=== PATIENT | male | born 1975 | race Caucasian/White ===

== ENCOUNTER → 2016-02-22 | Outpatient (CLI) | payer OTHER ==
[~2016-02-22] MED LIST: ASPI81TA28 PO; BSP/5 PO; DIPH1TAB PO; HYDR-5688 PO; LISI-725 PO; METO50TA16 PO; OMEP40CA PO; OMEP40CA41 PO
[2016-02-22 12:51] LABS: ALT/SGPT 38 U/L (12-78); AST/SGOT 15 U/L (15-37); BLOOD UREA NITROGEN 17 mg/dl (7-18); BUN/CREATININE RATIO 13.9 (10-20); CALCIUM 9.1 mg/dl (8.5-10.1); CARBON DIOXIDE 31 mmol/L (21-32); CHLORIDE 104 mmol/L (98-107); GLUCOSE 97 mg/dl (70-99); POTASSIUM 4.1 mmol/L (3.5-5.1); SODIUM 141 mmol/L (136-145)
[2016-02-22 12:54] LABS: ALB/GLOB RATIO 1.3 (0.9-2); ALKALINE PHOSPHATASE 67 U/L (45-117); CHOLESTEROL 149 mg/dl (0-200); CHOLESTEROL/HDL RATIO 3.9; HDL CHOLESTEROL 38 mg/dl; LDL CHOLESTEROL CALCULATED 76 mg/dl; TRIGLYCERIDES 176 mg/dl (0-150); VERY LOW DENSITY LIPOPROT CALC 35 mg/dl
== END | disposition home or self-care (01) ==
LOC: C.LABPVFM 08:48
PROVIDERS: ATTEND Nurse Practitioner Family
DX: I10 Essential (primary) hypertension (principal)

== ENCOUNTER 2016-03-09 18:28 | Emergency (ER) | payer OTHER ==
[~2016-03-09] VITALS: Ht 177.8 cm; Wt 91.0 kg
[~2016-03-09 18:28] MED LIST changes: -ASPI81TA28 PO; -BSP/5 PO; -DIPH1TAB PO; -HYDR-5688 PO; -LISI-725 PO; -METO50TA16 PO; -OMEP40CA41 PO
[2016-03-09 18:33] VITALS: TEMP 36.3; Ht 177.8 cm; Wt 91.0 kg
[2016-03-09] MEDS ORDERED: LISI-725 PO (19:03)
[2016-03-09] MEDS ORDERED: BSP/5 PO (19:03)
[2016-03-09] MEDS ORDERED: METO50TA16 PO (19:03)
[2016-03-09] MEDS ORDERED: OMEP40CA41 PO (19:03)
[2016-03-09] MEDS ORDERED: ASPI81TA28 PO (19:04)
[2016-03-09] MEDS ORDERED: DIPH1TAB PO (19:04)
[2016-03-09] MEDS ORDERED: SODIUM CHLORIDE 0.9% 1000ML 1,000 ML IV STA (19:42)
[2016-03-09] MEDS ORDERED: ONDANSETRON INJ 2 MG/ML 2 ML VIAL IV STA (19:42)
[2016-03-09] MEDS ORDERED: MoRPHine SULFATE 4 MG/ML 1 ML CARP\\VIAL IV PRN (19:45)
[2016-03-09 19:51] VITALS: O2SAT 97
[2016-03-09 19:51] LABS: BASO % 0.2 %; BASO ABS # 0.01 K/uL (0-0.2); COMPLETE YES; EOS % 2.2 %; HEMATOCRIT 42.7 % (42-52); IG% 0.2 %; LYMPH % 14.9 %; LYMPH ABS # 0.76 K/uL (1.2-3.4); MEAN CELL VOLUME 86.6 fL (80-100); MEAN CORPUSCULAR HEMOGLOBIN 32.7 pg (25-34); MEAN CORPUSCULAR HGB CONC 37.7 g/dl (32-36); MEAN PLATELET VOLUME 9.9 fL (7.4-10.4); MONO % 6.9 %; NEUT % 75.6 %; PLATELET COUNT 174 K/uL (130-400); RED BLOOD COUNT 4.93 M/uL (4.7-6.1); WHITE BLOOD COUNT 5.09 K/uL (4.8-10.8)
--- NOTE | 2016-03-09 20:02 | DIAGNOSTIC IMAGING REPORT ---
CHEST ONE VIEW PORTABLE HISTORY: Atypical CHEST PAIN COMPARISON: Chest 08/18/2015. FINDINGS: The lungs are clear. Cardiac silhouette is normal in size. No pleural effusions. No pneumothorax. IMPRESSION: No acute process. Electronically signed by: Raheem Whalen M.D. 03/09/2016 8:01 PM Dictated Date/Time: 03/09/2016 8:00 PM
[2016-03-09 20:05] LABS: ALT/SGPT 31 U/L (12-78); BLOOD UREA NITROGEN 19 mg/dl (7-18); BUN/CREATININE RATIO 13.5 (10-20); CALCIUM 7.8 mg/dl (8.5-10.1); CARBON DIOXIDE 23 mmol/L (21-32); CHLORIDE 104 mmol/L (98-107); GLUCOSE 105 mg/dl (70-99); POTASSIUM 3.4 mmol/L (3.5-5.1); SODIUM 139 mmol/L (136-145)
[2016-03-09 20:09] LABS: ALKALINE PHOSPHATASE 81 U/L (45-117); AST/SGOT 20 U/L (15-37)
[2016-03-09] MEDS ORDERED: OPTIRAY 320 IV PRN (20:30)
--- NOTE | 2016-03-09 20:50 | DIAGNOSTIC IMAGING REPORT ---
HEAD CT NONCONTRAST CT DOSE: HISTORY: severe headache, blurry vision TECHNIQUE: Multiaxial CT images of the head were performed without the use of intravenous contrast. Automated exposure control was utilized for this study. Comparison: None. Findings: The paranasal sinuses and mastoid air cells are clear. The calvarium and skull base are intact. The ventricles and sulci are within normal limits. There is no mass, hematoma, midline shift, or acute infarct. Impression: No acute intracranial abnormality. Electronically signed by: Raheem Whalen M.D. 03/09/2016 8:48 PM Dictated Date/Time: 03/09/2016 8:44 PM
--- NOTE | 2016-03-09 20:57 | DIAGNOSTIC IMAGING REPORT ---
CHEST CTA for PULMONARY ARTERIES CT DOSE: 1396.69 mGy.cm HISTORY: Atypical chest pain. Short of breath. TECHNIQUE: Multiaxial CT images of the chest were performed following the intravenous administration of contrast to evaluate the pulmonary arteries. Maximal intensity projection images were also obtained. COMPARISON STUDY: Chest 03/09/2016. FINDINGS: Normal caliber thoracic aorta with no evidence for dissection. Incidental note is made of an aberrant right subclavian artery. The heart is normal in size. No pleural or pericardial effusions. No filling defects within the pulmonary arteries to suggest pulmonary embolus. The visualized liver is unremarkable. There may be mild splenomegaly which is partially visualized on this study. The adrenal glands are unremarkable. No mediastinal lymphadenopathy. Single prominent right hilar lymph node measuring 8 mm. No left hilar lymphadenopathy. No suspicious lytic or blastic osseous lesions. No pneumothorax. The central airways are patent. Suspect mild emphysema. No focal lung consolidations. IMPRESSION: No evidence for pulmonary embolus. Additional findings as described above Electronically signed by: Raheem Whalen M.D. 03/09/2016 8:56 PM Dictated Date/Time: 03/09/2016 8:48 PM
[2016-03-09 21:30] VITALS: BP 104/69; PULSE 62; O2SAT 96
[2016-03-09 21:56] LABS: URINE APPEARANCE CLEAR (CLEAR); URINE COLOR DK YELLOW; URINE EPITHELIAL CELL AUTO >30 /lpf (0-5); URINE NITRITE NEG (NEG); URINE PH 5.5 (4.5-7.5); URINE SPECIFIC GRAVITY 1.039 (1.000-1.030); UROBILINOGEN NEG (NEG)
[2016-03-09 22:07] LABS: MANUAL MICROSCOPIC REQUIRED? NO; REVIEW REQ? YES
[2016-03-09 22:08] LABS: URINE BILIRUBIN NEG (NEG)
[2016-03-09 22:28] LABS: URINE MUCUS PRESENT (NONE PRSENT)
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
== END 2016-03-09 21:35 | disposition home or self-care (01) ==
LOC: EDBD 18:28 → C.EDB 18:29
DX: R55 Syncope and collapse (principal); R07.9 Chest pain, unspecified; R51 Headache; H53.8 Other visual disturbances; I45.10 Unspecified right bundle-branch block; I10 Essential (primary) hypertension; K21.9 Gastro-esophageal reflux disease without esophagitis; F41.9 Anxiety disorder, unspecified; Z79.82 Long term (current) use of aspirin; F17.200 Nicotine dependence, unspecified, uncomplicated

== ENCOUNTER 2016-05-24 17:41 | Emergency (ER) | payer OTHER ==
[~2016-05-24] VITALS: Ht 177.8 cm; Wt 95.4 kg
[~2016-05-24 17:41] MED LIST changes: +ASPI81TA28 PO; +BSP/5 PO; +DIPH1TAB87 PO; +LISI-725 PO; +METO50TA16 PO; -OMEP40CA PO; +OMEP40CA41 PO
[2016-05-24 17:52] VITALS: TEMP 36.6; Ht 177.8 cm; Wt 95.4 kg
[2016-05-24] MEDS ORDERED: HYDROCODONE/ACETAMOPHEN 5/325MG TAB PO STA (18:13)
--- NOTE | 2016-05-24 18:45 | DIAGNOSTIC IMAGING REPORT ---
LEFT RIBS UNILATERAL WITH PA CHEST CLINICAL HISTORY: left rib pain pain COMPARISON STUDY: None FINDINGS: Negative left ribs. Negative PA chest. IMPRESSION: Negative study Electronically signed by: Shiv Jo M.D. 05/24/2016 6:43 PM Dictated Date/Time: 05/24/2016 6:40 PM
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
[2016-05-24] MEDS ORDERED: HYDR-5688 PO (18:51)
[2016-05-24 19:12] VITALS: BP 142/84; PULSE 80; O2SAT 97
== END 2016-05-24 19:13 | disposition home or self-care (01) ==
LOC: C.EDB 17:42 → C.EDD 19:13
DX: M94.0 Chondrocostal junction syndrome [Tietze] (principal); I10 Essential (primary) hypertension; Z87.19 Personal history of other diseases of the digestive system; Z98.890 Other specified postprocedural states; Z79.899 Other long term (current) drug therapy; Z88.8 Allergy status to other drugs, medicaments and biological substances

== ENCOUNTER → 2016-10-06 | Outpatient (CLI) | payer OTHER ==
[~2016-10-06] MED LIST changes: -BSP/5 PO; -DIPH1TAB87 PO; +HYDR-5688 PO; -LISI-725 PO; -METO50TA16 PO
[2016-10-06 12:58] LABS: BLOOD UREA NITROGEN 15 mg/dl (7-18); BUN/CREATININE RATIO 10.5 (10-20); CALCIUM 8.5 mg/dl (8.5-10.1); CARBON DIOXIDE 29 mmol/L (21-32); CHLORIDE 106 mmol/L (98-107); GLUCOSE 99 mg/dl (70-99); SODIUM 139 mmol/L (136-145)
== END | disposition home or self-care (01) ==
LOC: C.LABPVFM 07:50
PROVIDERS: ATTEND Nurse Practitioner Family
DX: F41.9 Anxiety disorder, unspecified (principal)

== ENCOUNTER 2017-03-27 20:22 | Emergency (ER) | payer OTHER ==
[~2017-03-27] VITALS: Ht 177.8 cm; Wt 101.6 kg
[~2017-03-27 20:22] MED LIST changes: -HYDR-5688 PO
[2017-03-27 20:30] VITALS: Ht 177.8 cm; Wt 101.6 kg
[2017-03-27] MEDS ORDERED: ALBUT/IPRATROP 3MG/0.5MG NEB 3 ML VIAL INH STA (20:58)
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
[2017-03-27] MEDS ORDERED: OMEP40CA41 PO (21:18)
[2017-03-27] MEDS ORDERED: TRAZ50TA35 PO (21:18)
[2017-03-27] MEDS ORDERED: QUET1TAB34 PO (21:18)
[2017-03-27] MEDS ORDERED: LISI-787 PO (21:18)
[2017-03-27] MEDS ORDERED: METO50TA16 PO (21:18)
[2017-03-27] MEDS ORDERED: MIRT15TA3 PO (21:18)
[2017-03-27] MEDS ORDERED: GABA-113 PO (21:18)
[2017-03-27 21:41] LABS: BASO % 0.4 %; BASO ABS # 0.02 K/uL (0-0.2); EOS % 7.8 %; EOS ABS # 0.37 K/uL (0-0.5); HEMATOCRIT 42.7 % (42-52); HEMOGLOBIN 15.3 g/dL (14.0-18.0); LYMPH % 37.1 %; LYMPH ABS # 1.77 K/uL (1.2-3.4); MEAN CELL VOLUME 90.5 fL (80-100); MEAN CORPUSCULAR HEMOGLOBIN 32.4 pg (25-34); MEAN CORPUSCULAR HGB CONC 35.8 g/dl (32-36); MEAN PLATELET VOLUME 9.5 fL (7.4-10.4); MONO % 7.3 %; MONO ABS # 0.35 K/uL (0.11-0.59); NEUT % 47.4 %; NEUT ABS # 2.26 K/uL (1.4-6.5); PLATELET COUNT 162 K/uL (130-400); RED CELL DISTRIBUTION WIDTH CV 14.1 % (11.5-14.5); RED CELL DISTRIBUTION WIDTH SD 46.6 fL (36.4-46.3); WHITE BLOOD COUNT 4.77 K/uL (4.8-10.8)
[2017-03-27 21:42] VITALS: TEMP 36.6
--- NOTE | 2017-03-27 21:44 | DIAGNOSTIC IMAGING REPORT ---
SINGLE VIEW CHEST CLINICAL HISTORY: Rhonchi on physical examination. Cough. FINDINGS: An AP, portable, upright chest radiograph is compared to chest x-ray and chest CT dated 03/09/2016. The examination is degraded by portable technique and patient rotation. The cardiomediastinal silhouette is unremarkable. The lungs and pleural spaces are clear. No pneumothorax is seen. The bony thorax is grossly intact. IMPRESSION: No acute cardiopulmonary abnormality. Electronically signed by: Reji Mathias M.D. 03/27/2017 9:42 PM Dictated Date/Time: 03/27/2017 9:42 PM
[2017-03-27 22:01] LABS: ALBUMIN 4.1 gm/dl (3.4-5.0); CALCIUM 8.4 mg/dl (8.5-10.1); CREATININE 1.44 mg/dl (0.60-1.40); POTASSIUM 3.3 mmol/L (3.5-5.1)
[2017-03-27 22:12] LABS: TOTAL PROTEIN 7.7 gm/dl (6.4-8.2)
[2017-03-28 00:48] VITALS: BP 127/81; PULSE 76; O2SAT 98
== END 2017-03-28 00:49 | disposition home or self-care (01) ==
LOC: EDBD 20:22 → C.EDA 20:24
DX: R45.6 Violent behavior (principal); F39 Unspecified mood [affective] disorder; R06.2 Wheezing; F17.200 Nicotine dependence, unspecified, uncomplicated; I10 Essential (primary) hypertension; Z72.89 Other problems related to lifestyle; Z88.6 Allergy status to analgesic agent; Z82.49 Family history of ischemic heart disease and other diseases of the circulatory system; Z84.1 Family history of disorders of kidney and ureter

== ENCOUNTER 2017-05-09 12:21 | Emergency (ER) | payer OTHER ==
[~2017-05-09] VITALS: Ht 177.8 cm; Wt 96.9 kg
[~2017-05-09 12:21] MED LIST changes: -ASPI81TA28 PO; +LISI-787 PO; +METO50TA16 PO; +MIRT15TA3 PO; +QUET1TAB34 PO; +TRAZ50TA35 PO
[2017-05-09 12:24] VITALS: TEMP 36.5; Ht 177.8 cm; Wt 96.9 kg
[2017-05-09] MEDS ORDERED: SODIUM CHLORIDE 0.9% 1000ML 1,000 ML IV STA (12:54)
[2017-05-09] MEDS ORDERED: ALBUTEROL 0.083% NEBU SOLN 3 ML VIAL INH STA (12:55)
[2017-05-09] MEDS ORDERED: BENZONATATE 100MG CAP PO ONE (13:00)
--- NOTE | 2017-05-09 13:17 | DIAGNOSTIC IMAGING REPORT ---
CHEST ONE VIEW PORTABLE CLINICAL HISTORY: 42 years-old Male presenting with cough, headache, lower back pain, loss of breath. TECHNIQUE: Portable upright AP view of the chest was obtained. COMPARISON: 03/27/2017. FINDINGS: Cardiomediastinal silhouette normal. Lungs and pleural spaces clear. Osseous structures normal. Upper abdomen normal. IMPRESSION: 1. No acute cardiopulmonary disease. Electronically signed by: Ruben Lund M.D. 05/09/2017 1:15 PM Dictated Date/Time: 05/09/2017 1:14 PM
[2017-05-09 13:23] LABS: BASO % 0.3 %; BASO ABS # 0.01 K/uL (0-0.2); EOS ABS # 0.04 K/uL (0-0.5); HEMOGLOBIN 16.9 g/dL (14.0-18.0); IG# 0.01 K/uL (0.00-0.02); LYMPH % 4.9 %; LYMPH ABS # 0.19 K/uL (1.2-3.4); MEAN CELL VOLUME 88.6 fL (80-100); MEAN CORPUSCULAR HEMOGLOBIN 33.3 pg (25-34); MEAN CORPUSCULAR HGB CONC 37.6 g/dl (32-36); MEAN PLATELET VOLUME 9.9 fL (7.4-10.4); MONO % 13.6 %; MONO ABS # 0.53 K/uL (0.11-0.59); NEUT % 79.9 %; NEUT ABS # 3.13 K/uL (1.4-6.5); PLATELET COUNT 162 K/uL (130-400); RED CELL DISTRIBUTION WIDTH CV 12.8 % (11.5-14.5); RED CELL DISTRIBUTION WIDTH SD 41.1 fL (36.4-46.3); WHITE BLOOD COUNT 3.91 K/uL (4.8-10.8)
[2017-05-09 13:36] LABS: CALCIUM 9.5 mg/dl (8.5-10.1); CREATININE 1.57 mg/dl (0.60-1.40); POTASSIUM 3.7 mmol/L (3.5-5.1)
[2017-05-09 13:58] LABS: INFLUENZA B ANTIGEN Neg for Influ B (NEG)
[2017-05-09 14:00] VITALS: BP 138/83; PULSE 94; O2SAT 94
[2017-05-09] MEDS ORDERED: ALBUTEROL HFA 8 GM INHALER INH ONE (14:15)
--- NOTE | 2017-05-09 19:15 | EMERGENCY ROOM VISIT NOTE ---
History Report prepared by Junioribsavanah: Zhou Rodriguez Under the Supervision of: Dr. Real Ott D.O. First contact with patient: 12:47 Chief Complaint: RESPIRATORY PROBLEMS Stated Complaint: HEADACHE, LOSS OF BREATH, LOWER BACK PAIN Nursing Triage Summary: Shortness of breath. Difficulty with exertion. Describes chest pain with hurting to breath and hurting to cough. History of Present Illness The patient is a 42 year old male who presents to the Emergency Room with complaints of constant shortness of breath beginning yesterday. He states that he woke up with a cough yesterday. His cough produces a greenish sputum. The patient states that he then developed body aches, fevers (101 degrees), runny nose and sore throat. He also complains of lower back pain and headache with coughing. His back pain is worsened with movement. The patient's breathing is worsened with coughing. Pt denies ear pain, change in vision, chest pain, abdominal pain, nausea, vomiting, diarrhea, pain with urination, and melena. He denies any known sick contacts. He is a smoker. The patient has a history of hypertension. Patient denies swelling of calves, recent trips, history of immobilization or recent surgery, prior history of DVT, hemoptysis, history of malignancy, history of smoking, or control/estrogen use. Patient denies diabetes, hyperlipidemia, CAD, history of sudden at a young age. Source of History: patient Onset: Yesterday Quality: other (shortness of breath) Timing: constant Modifying Factors (Worsening): other (coughing) Associated Symptoms: + fevers (101 degrees), + headache (with coughing), + sorethroat, + cough, + back pain (low with coughing), No chest pain, No nausea, No vomiting, No abdominal pain, No melena, No diarrhea, No urinary symptoms Note: Positive: body aches and runny nose. Negative: ear pain, visual changes. Review of Systems See HPI for pertinent positives & negatives. A total of 10 systems reviewed and were otherwise negative. Past Medical & Surgical Medical Problems: (1) HTN (hypertension) Family History Hypertension Kidney disease Social History Smoking Status: Current Some Day Smoker Alcohol Use: none Housing Status: lives with family Occupation Status: unemployed Current/Historical Medications Scheduled Lisinopril/Hctz (Zestoretic 20MG/12.5MG), 1 TAB PO DAILY Metoprolol Tartrate (Lopressor) (Lopressor), 50 MG PO BID Mirtazapine (Remeron), 15 MG PO HS Omeprazole (Prilosec), 40 MG PO DAILY Quetiapine Fumarate (Seroquel), 100 MG PO BID Allergies Coded Allergies: Fentanyl (Verified Allergy, Severe, resp diff, 05/09/17) Naproxen (Unverified Allergy, Unknown, UPSET STOMACH, 05/09/17) Physical Exam Vital Signs Date Time Temp Pulse Resp B/P (MAP) Pulse Ox O2 Delivery O2 Flow Rate FiO2 05/09/17 14:00 94 20 138/83 94 Room Air 05/09/17 12:27 94 Room Air 05/09/17 12:24 36.5 112 20 144/89 96 Room Air Physical Exam GENERAL: Sitting up in bed, alert, well appearing, well nourished, no distress, non-toxic. Dry, non-productive cough. EYE EXAM: normal conjunctiva. EARS: TMs clear bilaterally. OROPHARYNX: no exudate, no erythema, lips, buccal mucosa, and tongue normal and mucous membranes are moist NECK: supple, no nuchal rigidity, no adenopathy, non-tender LUNGS: Diffuse wheezing bilaterally. HEART: no murmurs, S1 normal and S2 normal ABDOMEN: abdomen soft, non-tender, normo-active bowel sounds, no masses, no rebound or guarding. BACK: Back is symmetrical on inspection and there is no deformity. Lower lumbar paraspinal region with acute tenderness, worsened with bending/twisting/turning and palpation. SKIN: no rashes and no bruising UPPER EXTREMITIES: upper extremities are grossly normal. LOWER EXTREMITIES: No pitting edema. NEURO EXAM: Normal sensorium, cranial nerves II-XII grossly intact, normal speech, no gross weakness of arms, no gross weakness of legs. Medical Decision & Procedures ER Provider Diagnostic Interpretation: Radiology results as stated below per my review and the radiologist's interpretation: CHEST ONE VIEW PORTABLE FINDINGS: Cardiomediastinal silhouette normal. Lungs and pleural spaces clear. Osseous structures normal. Upper abdomen normal. IMPRESSION: 1. No acute cardiopulmonary disease. Electronically signed by: Ruben Lund M.D. 05/09/2017 1:15 PM Laboratory Results 05/09/17 13:05 Red Blood Count 5.08, Mean Corpuscular Volume 88.6, Mean Corpuscular Hemoglobin 33.3, Mean Corpuscular Hemoglobin Concent 37.6, Mean Platelet Volume 9.9, Neutrophils (%) (Auto) 79.9, Lymphocytes (%) (Auto) 4.9, Monocytes (%) (Auto) 13.6, Eosinophils (%) (Auto) 1.0, Basophils (%) (Auto) 0.3, Neutrophils # (Auto ) 3.13, Lymphocytes # (Auto) 0.19, Monocytes # (Auto) 0.53, Eosinophils # (Auto ) 0.04, Basophils # (Auto) 0.01 05/09/17 13:05 Test 05/09/17 13:05 05/09/17 13:25 White Blood Count 3.91 K/uL (4.8-10.8) Red Blood Count 5.08 M/uL (4.7-6.1) Hemoglobin 16.9 g/dL (14.0-18.0) Hematocrit 45.0 % (42-52) Mean Corpuscular Volume 88.6 fL (80-100) Mean Corpuscular Hemoglobin 33.3 pg (25-34) Mean Corpuscular Hemoglobin Concent 37.6 g/dl (32-36) Platelet Count 162 K/uL (130-400) Mean Platelet Volume 9.9 fL (7.4-10.4) Neutrophils (%) (Auto) 79.9 % Lymphocytes (%) (Auto) 4.9 % Monocytes (%) (Auto) 13.6 % Eosinophils (%) (Auto) 1.0 % Basophils (%) (Auto) 0.3 % Neutrophils # (Auto) 3.13 K/uL (1.4-6.5) Lymphocytes # (Auto) 0.19 K/uL (1.2-3.4) Monocytes # (Auto) 0.53 K/uL (0.11-0.59) Eosinophils # (Auto) 0.04 K/uL (0-0.5) Basophils # (Auto) 0.01 K/uL (0-0.2) RDW Standard Deviation 41.1 fL (36.4-46.3) RDW Coefficient of Variation 12.8 % (11.5-14.5) Immature Granulocyte % (Auto) 0.3 % Immature Granulocyte # (Auto) 0.01 K/uL (0.00-0.02) Anion Gap 8.0 mmol/L (3-11) Est Creatinine Clear Calc Drug Dose 71.6 ml/min Estimated GFR () 62.1 Estimated GFR (Non- 53.6 BUN/Creatinine Ratio 8.6 (10-20) Calcium Level 9.5 mg/dl (8.5-10.1) Influenza Type A Antigen Neg for Influ A (NEG) Influenza Type B Antigen Neg for Influ B (NEG) Laboratory results per my review. Medications Administered Medications (Trade) Dose Ordered Sig/Gale Route Start Time Stop Time Status Last Admin Dose Admin Sodium Chloride 1,000 ml @ 999 mls/hr Q1H1M STAT IV 05/09/17 12:54 05/09/17 13:54 DC 05/09/17 13:19 999 MLS/HR Benzonatate (Tessalon Perles Cap) 100 mg NOW ONCE PO 05/09/17 13:00 05/09/17 13:01 DC 05/09/17 13:19 100 MG Albuterol Sulfate (Ventolin 0.083% 2.5MG/3ML Neb) 2.5 mg NOW STAT INH 05/09/17 12:55 05/09/17 12:56 DC 05/09/17 13:19 2.5 MG Albuterol (Ventolin Hfa Inhaler) 2 puffs NOW ONCE INH 05/09/17 14:15 05/09/17 14:17 DC 05/09/17 14:14 2 PUFFS ECG Per My Interpretation Indication: SOB/dyspnea Rate (beats per minute): 96 Rhythm: sinus rhythm Findings: no ectopy, other (Normal axis. Intraventricular conduction delay. ) ED Course ED COURSE: Vital signs were reviewed and showed tachycardia and hypertension. The patients medical record was reviewed The above diagnostic studies were performed and reviewed. ED treatments and interventions as stated above. 1249: The patient was evaluated in room C3. A complete history and physical examination was performed. 1254: Ordered Sodium Chloride 1000 ml @ 999 mls/hr IV, Ventolin 0.083% 2.5 mg INH. 1300: Ordered Tessalon Perles Cap 100 mg PO. 1405: Upon reevaluation, the patient is resting comfortably. He feels much better and does not want anything else done. His heart rate is down to the 90' s. I discussed my findings with the patient and he understands and agrees with the treatment plan. Based on the patients age, coexisting illnesses, exam and lab findings the decision to treat as an outpatient was made. The patient remained stable while under my care. The patient appeared well at the time of discharge. 1415: Ordered Ventolin Hfa Inhaler 2 puffs INH. Medical Decision Differential diagnoses includes but is not limited to pneumonia, bronchitis, COPD/Asthma exacerbation, pneumothorax, pulmonary embolism, congestive heart failure, acute coronary syndrome. Patient is a 42-year-old male who presents the ER for shortness of breath associated with a green productive cough, runny nose and sore throat. He did have a temperature of 101 yesterday. He also admits to mild right lower back pain. This is worsened with twisting turning bending and reproducible on exam. I do favor this musculoskeletal. Labs show mild leukopenia at 3.9. BMP was unremarkable. Chest x-ray and EKG were unremarkable. Based on symptoms I do favor this is related to a viral URI/bronchitis. He did have wheezing bilaterally which resolved with a neb treatment. He did feel significant better. He declined additional treatment. He was discharged follow-up with PCP as an outpatient. He was given an inhaler as I favor he likely has reactive airway disease secondary to a viral URI. Discussed with Pt concerning signs and symptoms to watch out for. Pt was instructed to follow up with their PCP and discussed with the patient their option to return to the ED at anytime for persistent or worsening symptoms. The appropriate anticipatory guidance and out-patient management, including indications for return to the emergency department, were explained at length to the patient and understood. Medication Reconcilliation Current Medication List: was personally reviewed by me Blood Pressure Screening Patient's blood pressure: Elevated blood pressure Blood pressure disposition: Elevated BP felt to be situational Impression Primary Impression: Bronchitis Scribe Attestation The scribe's documentation has been prepared under my direction and personally reviewed by me in its entirety. I confirm that the note above accurately reflects all work, treatment, procedures, and medical decision making performed by me. Departure Information Dispostion Home / Self-Care Referrals No Doctor, Assigned (PCP) Forms HOME CARE DOCUMENTATION FORM, IMPORTANT VISIT INFORMATION, WORK / SCHOOL INSTRUCTIONS Patient Instructions Bronchitis Acute, My [facility] Additional Instructions Please follow up with your primary care doctor with in the next 24 hours. Any worsening of your symptoms, please return to the ED immediately. This includes any fevers greater than 100.4, worsening pain, chest pain, shortness breath, persistent nausea, vomiting, unable to eat or drink, or any other concerning signs or symptoms from your standpoint. Please use the inhaler as prescribed over the course of the next 3-5 days. This will help out with the wheezing and shortness of breath. With the inhaler he can use 2 puffs every 6 hours as needed for shortness of breath.
== END 2017-05-09 14:20 | disposition home or self-care (01) ==
LOC: C.EDB 12:22 → C.EDC 14:20
DX: J40 Bronchitis, not specified as acute or chronic (principal); I10 Essential (primary) hypertension; F17.200 Nicotine dependence, unspecified, uncomplicated; Z88.6 Allergy status to analgesic agent; Z82.49 Family history of ischemic heart disease and other diseases of the circulatory system; Z79.899 Other long term (current) drug therapy

== ENCOUNTER 2017-09-27 16:25 | Inpatient (IN) | payer OTHER ==
[~2017-09-27] VITALS: Ht 177.8 cm; Wt 90.9 kg
[~2017-09-27 16:25] MED LIST changes: -LISI-787 PO; -METO50TA16 PO; -OMEP40CA41 PO; -QUET1TAB34 PO; -TRAZ50TA35 PO
[2017-09-27] MEDS ORDERED: SODIUM CHLORIDE 0.9% 1000ML 1,000 ML IV STA (17:04)
[2017-09-27] MEDS ORDERED: ONDANSETRON INJ 2 MG/ML 2 ML VIAL IV STA (17:04)
[2017-09-27 17:28] LABS: BASO % 0.3 %; BASO ABS # 0.03 K/uL (0-0.2); EOS % 1.4 %; EOS ABS # 0.16 K/uL (0-0.5); HEMATOCRIT 53.6 % (42-52); HEMOGLOBIN 19.7 g/dL (14.0-18.0); IG# 0.03 K/uL (0.00-0.02); LYMPH % 9.8 %; LYMPH ABS # 1.11 K/uL (1.2-3.4); MEAN CELL VOLUME 89.3 fL (80-100); MEAN CORPUSCULAR HEMOGLOBIN 32.8 pg (25-34); MEAN CORPUSCULAR HGB CONC 36.8 g/dl (32-36); MEAN PLATELET VOLUME 10.2 fL (7.4-10.4); MONO % 4.7 %; MONO ABS # 0.53 K/uL (0.11-0.59); NEUT % 83.5 %; NEUT ABS # 9.52 K/uL (1.4-6.5); PLATELET COUNT 259 K/uL (130-400); RED CELL DISTRIBUTION WIDTH CV 13.2 % (11.5-14.5); RED CELL DISTRIBUTION WIDTH SD 42.5 fL (36.4-46.3); WHITE BLOOD COUNT 11.38 K/uL (4.8-10.8)
[2017-09-27] MEDS ORDERED: OPTIRAY 320 IV PRN (17:30)
--- NOTE | 2017-09-27 17:39 | DIAGNOSTIC IMAGING REPORT ---
CHEST ONE VIEW PORTABLE CLINICAL HISTORY: 42 years-old Male presenting with EVALUATE ALTERED MENTAL STATUS/WEAKNESS. TECHNIQUE: Portable upright AP view of the chest was obtained. COMPARISON: 05/09/2017. FINDINGS: Cardiomediastinal silhouette normal. No focal opacity. No large effusion or pneumothorax. Osseous structures normal. Upper abdomen normal. IMPRESSION: 1. No acute cardiopulmonary disease. Electronically signed by: Ruben Lund M.D. 09/27/2017 5:38 PM Dictated Date/Time: 09/27/2017 5:37 PM
[2017-09-27 17:44] LABS: PTT PATIENT 23.1 SECONDS (21.0-31.0)
[2017-09-27] MEDS ORDERED: SODIUM CHLORIDE 0.9% 1000ML 2,000 ML IV STA ×2 (17:47→19:18)
[2017-09-27 19:06] LABS: ALKALINE PHOSPHATASE 93 U/L (45-117); ALT/SGPT 42 U/L (12-78); AST/SGOT 23 U/L (15-37); BLOOD UREA NITROGEN 18 mg/dl (7-18); CALCIUM 10.3 mg/dl (8.5-10.1); CREATININE 2.62 mg/dl (0.60-1.40); GLUCOSE 82 mg/dl (70-99); POTASSIUM 3.3 mmol/L (3.5-5.1); SODIUM 138 mmol/L (136-145); TOTAL PROTEIN 9.1 gm/dl (6.4-8.2)
--- NOTE | 2017-09-27 20:06 | DIAGNOSTIC IMAGING REPORT ---
CT ABD/PELVIS IV CONTRAST ONLY CLINICAL HISTORY: Abdominal and back pain. Syncope. COMPARISON STUDY: None. TECHNIQUE: Following the IV administration of 92 mL of Optiray-320, CT scan of the abdomen and pelvis was performed from the lung bases to the proximal femurs. Images are reviewed in the axial, sagittal, and coronal planes. IV contrast was administered without complication. A dose lowering technique was utilized adhering to the principles of ALARA. CT DOSE: FINDINGS: Lower chest: The heart is normal in size and configuration, without pericardial effusion. The lung bases and pleural spaces are clear. Liver: There is a to small to characterize 5 mm hypodensity within the right hepatic lobe immediately beneath the dome the diaphragm. There is no ductal dilatation. The portal veins are patent. Gallbladder: Unremarkable. Spleen: Normal in size and attenuation. Pancreas: Unremarkable. Adrenal glands: Unremarkable. Kidneys: There is symmetric renal cortical enhancement. The kidneys are normal in size without hydronephrosis. Bowel: There are no transition zones indicate bowel obstruction. There is no evidence of acute appendicitis. There is no evidence of acute diverticulitis. Peritoneum: There is no intraperitoneal free air or abdominal ascites. Vasculature: The abdominal aorta is normal in course and caliber. Adenopathy: None. Pelvic viscera: The bladder, and pelvic viscera are unremarkable. Skeletal structures: No destructive osseous lesions are seen. IMPRESSION: 1. No acute intra-abdominal or pelvic findings 2. No evidence of bowel obstruction. No evidence of free air 3. Normal appendix. No evidence of acute diverticulitis. 4. No evidence of hydronephrosis. Electronically signed by: Augustine Callahan M.D. 09/27/2017 8:05 PM Dictated Date/Time: 09/27/2017 8:02 PM
--- NOTE | 2017-09-27 20:09 | DIAGNOSTIC IMAGING REPORT ---
CT ANGIOGRAM OF THE CHEST CLINICAL HISTORY: Atypical chest and back pain COMPARISON STUDY: March 2016 TECHNIQUE: Following the IV administration of 92 mL of Optiray-320, CT angiogram of the thorax was performed from the thoracic inlet to the lung bases utilizing the pulmonary embolus protocol. Images are reviewed in the axial, sagittal, and coronal planes. IV contrast was administered without complication. MIP imaging was performed. A dose lowering technique was utilized adhering to the principles of ALARA. CT DOSE: 1437.26 mGycm FINDINGS: No pathologically enlarged axillary mediastinal or hilar lymph nodes were visualized. There is a left aortic arch with an aberrant right subclavian artery. There is no evidence of thoracic aortic dilatation. There were no pulmonary artery filling defects to indicate acute pulmonary embolism. No pleural effusions are visualized. There is no focal pulmonary consolidation. IMPRESSION: 1. No evidence of acute pulmonary embolism 2. No evidence of focal pulmonary consolidation 3. 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 09/27/2017 8:08 PM Dictated Date/Time: 09/27/2017 8:05 PM
--- NOTE | 2017-09-27 20:12 | DIAGNOSTIC IMAGING REPORT ---
CT THORACIC SPINE WITHOUT CT DOSE: 880.50 mGycm CLINICAL HISTORY: Severe mid thoracic pain. Trauma. TECHNIQUE: Unenhanced images were obtained through the thoracic spine. Sagittal and coronal reformatted images were acquired. A dose lowering technique was utilized adhering to the principles of ALARA. COMPARISON STUDY: None. FINDINGS: There is no pneumothorax. There are no pleural effusions. There is no evidence for a paraspinal hematoma. No fractures or subluxations are visualized. There are mild multilevel degenerative changes IMPRESSION: 1. No fractures or subluxations identified. Electronically signed by: Augustine Callahan M.D. 09/27/2017 8:11 PM Dictated Date/Time: 09/27/2017 8:08 PM
[2017-09-27 21:15] VITALS: O2SAT 98
[2017-09-27] MEDS ORDERED: QUET1TAB34 PO (21:18)
[2017-09-27] MEDS ORDERED: METO50TA16 PO (21:18)
[2017-09-27] MEDS ORDERED: OMEP40CA41 PO (21:18)
[2017-09-27] MEDS ORDERED: LISI-787 PO (21:18)
[2017-09-27] MEDS ORDERED: ACETAMINOPHEN 325 MG TAB PO PRN (21:30)
[2017-09-27] MEDS ORDERED: ONDANSETRON INJ 2 MG/ML 2 ML VIAL IV PRN (21:30)
--- NOTE | 2017-09-27 21:37 | History and Physical ---
History & Physical Date & Time of Service: Sep 27, 2017 at 21:36 Chief Complaint: Neck,Back Of Head, And Jaw Pain Primary Care Physician: No Doctor, Assigned History of Present Illness Source: patient, hospital records The patient is a 42-year-old male who presents to the emergency department with a syncopal episode that occurred today just prior to arrival. Patient reports that he was working out in the heat today, and began to have an upset stomach, feeling nauseous, lightheaded and feeling like he needed to move his bowels and urinate. He did lose consciousness, and woke up slumped over in his golf cart type vehicle. He was advised by family and friends come to the emergency department for assessment. Past Medical/Surgical History Medical Problems: (1) Acute bronchitis (2) Acute costochondritis (3) NAOMIE (acute kidney injury) (4) Bronchitis (5) Bronchitis (6) Difficulty controlling anger (7) HTN (hypertension) (8) Medical clearance for incarceration (9) Mood disorder (10) Syncope (11) Syncope and collapse Family History Hypertension Kidney disease Social History Smoking Status: Former Smoker Smokeless Tobacco Use: No Alcohol Use: none Drug Use: none Housing status: lives with family Occupational Status: unemployed Immunizations History of Influenza Vaccine: Unknown History of Tetanus Vaccine?: Unknown History of Pneumococcal: Unknown History of Hepatitis B Vaccine: Unknown Allergies Coded Allergies: Fentanyl (Verified Allergy, Severe, resp diff, 05/09/17) Naproxen (Unverified Allergy, Unknown, UPSET STOMACH, 05/09/17) Home Medications Scheduled Lisinopril/Hctz (Zestoretic 20MG/12.5MG), 1 TAB PO DAILY Metoprolol Tartrate (Lopressor) (Lopressor), 50 MG PO BID Omeprazole (Prilosec), 40 MG PO DAILY Scheduled PRN Quetiapine Fumarate (Seroquel), 100 MG PO HS PRN for Sleep Review of Systems The patient denies chest pain, palpitations, shortness of breath, dyspnea on exertion, cough, lower extremity swelling, sore throat, fevers, chills, sweats,vomiting, diarrhea , constipation, blood in urine or stool, dysuria, urinary frequency, rash, abnormal bruising or bleeding, imbalance, focal weakness, numbness or tingling in arms or legs, generalized arthralgias or myalgias, back or neck pain, or night sweats. The review of systems is otherwise negative other than for that already noted above, and at least 10 systems have been reviewed. Physical Exam Vital Signs Date Time Temp Pulse Resp B/P (MAP) Pulse Ox O2 Delivery O2 Flow Rate FiO2 09/27/17 21:15 88 16 135/92 98 Room Air 09/27/17 19:46 77 18 129/78 98 Room Air 09/27/17 18:26 69 18 109/77 99 Room Air 09/27/17 17:32 62 16 92/66 99 Room Air 09/27/17 17:11 63 94/78 73 90/58 68 91/65 09/27/17 17:11 98 Room Air 09/27/17 17:11 70 09/27/17 16:27 36.4 84 17 106/75 96 Room Air The patient is awake, alert and oriented 3, appears mildly disheveled, fatigued , normocephalic and atraumatic, lying in bed and in no acute distress. HEENT--PERRL, EOMI, mucous membranes and oropharynx dry. Neck--supple. No JVD. No bruits. Thyroid normal, trachea midline, no adenopathy. Heart--normal S1 and S2. No murmurs, rubs or gallops. Lungs--clear bilaterally, no respiratory distress, no accessory muscle use. Abdomen--normal bowel sounds and soft. Nontender. Nondistended, no hernias or masses, no organomegaly. Extremities--no cyanosis or clubbing. No edema. There are good distal pulses b/ l. Dermatologic--normal skin turgor, normal color, no abnormal lymph nodes, no rash. Neurologic--cranial nerves II through XII grossly intact. Rheumatologic--normal range of motion. Psychiatric--normal affect. Diagnostics Laboratory Results Results Past 24 Hours Test 09/27/17 17:03 09/27/17 19:46 09/27/17 20:18 Range/Units White Blood Count 11.38 4.8-10.8 K/uL Red Blood Count 6.00 4.7-6.1 M/uL Hemoglobin 19.7 14.0-18.0 g/dL Hematocrit 53.6 42-52 % Mean Corpuscular Volume 89.3 80-100 fL Mean Corpuscular Hemoglobin 32.8 25-34 pg Mean Corpuscular Hemoglobin Concent 36.8 32-36 g/dl Platelet Count 259 130-400 K/uL Mean Platelet Volume 10.2 7.4-10.4 fL Neutrophils (%) (Auto) 83.5 % Lymphocytes (%) (Auto) 9.8 % Monocytes (%) (Auto) 4.7 % Eosinophils (%) (Auto) 1.4 % Basophils (%) (Auto) 0.3 % Neutrophils # (Auto) 9.52 1.4-6.5 K/uL Lymphocytes # (Auto) 1.11 1.2-3.4 K/uL Monocytes # (Auto) 0.53 0.11-0.59 K/uL Eosinophils # (Auto) 0.16 0-0.5 K/uL Basophils # (Auto) 0.03 0-0.2 K/uL RDW Standard Deviation 42.5 36.4-46.3 fL RDW Coefficient of Variation 13.2 11.5-14.5 % Immature Granulocyte % (Auto) 0.3 % Immature Granulocyte # (Auto) 0.03 0.00-0.02 K/uL Prothrombin Time 10.5 9.0-12.0 SECONDS Prothromb Time International Ratio 1.0 0.9-1.1 Activated Partial Thromboplast Time 23.1 21.0-31.0 SECONDS Partial Thromboplastin Ratio 0.9 Sodium Level 138 136-145 mmol/L Potassium Level 3.3 3.5-5.1 mmol/L Chloride Level 103 98-107 mmol/L Carbon Dioxide Level 25 21-32 mmol/L Anion Gap 17.0 3-11 mmol/L Blood Urea Nitrogen 18 7-18 mg/dl Creatinine 2.62 0.60-1.40 mg/dl Est Creatinine Clear Calc Drug Dose 37.9 ml/min Estimated GFR () 33.4 Estimated GFR (Non- 28.8 BUN/Creatinine Ratio 6.7 10-20 Random Glucose 82 70-99 mg/dl Calcium Level 10.3 8.5-10.1 mg/dl Total Bilirubin 1.3 0.2-1 mg/dl Direct Bilirubin 0.3 0-0.2 mg/dl Aspartate Amino Transf (AST/SGOT) 23 15-37 U/L Alanine Aminotransferase (ALT/SGPT) 42 12-78 U/L Alkaline Phosphatase 93 45-117 U/L Troponin I < 0.015 0-0.045 ng/ml Total Protein 9.1 6.4-8.2 gm/dl Albumin 5.0 3.4-5.0 gm/dl Thyroid Stimulating Hormone (TSH) 1.990 0.300-4.500 uIu/ml Total Creatine Kinase 64 39-308 U/L Urine Color YELLOW Urine Appearance CLEAR CLEAR Urine pH 5.0 4.5-7.5 Urine Specific [place] 1.043 1.000-1.030 Urine Protein TRACE NEG Urine Glucose (UA) NEG NEG Urine Ketones TRACE NEG Urine Occult Blood NEG NEG Urine Nitrite NEG NEG Urine Bilirubin NEG NEG Urine Urobilinogen NEG NEG Urine Leukocyte Esterase NEG NEG Urine WBC (Auto) 1-5 0-5 /hpf Urine RBC (Auto) 0-4 0-4 /hpf Urine Hyaline Casts (Auto) 5-10 0-5 /lpf Urine Epithelial Cells (Auto) 20-30 0-5 /lpf Urine Bacteria (Auto) NEG NEG Diagnostic Radiology Patient Name: PATO MEIER Unit Number: [id number] Dictated: 09/27/172007 Transcribed: 09/27/172007 ARG Printed Date/Time: [~ rep prt dt]/[~ rep prt tm] [~ rep ct labl] - [~ rep ct ivnm] [facility] Radiology Department [place] [id number] Dictated: 09/27/172007 Transcribed: 09/27/172007 ARG Printed Date/Time: [~ rep prt dt]/[~ rep prt tm] [~ rep ct labl] - [~ rep ct ivnm] [~ rep ct add3]] CT THORACIC SPINE WITHOUT CT DOSE: 880.50 mGycm CLINICAL HISTORY: Severe mid thoracic pain. Trauma. TECHNIQUE: Unenhanced images were obtained through the thoracic spine. Sagittal and coronal reformatted images were acquired. A dose lowering technique was utilized adhering to the principles of ALARA. COMPARISON STUDY: None. FINDINGS: There is no pneumothorax. There are no pleural effusions. There is no evidence for a paraspinal hematoma. No fractures or subluxations are visualized. There are mild multilevel degenerative changes IMPRESSION: 1. No fractures or subluxations identified. Electronically signed by: Augustine Callahan M.D. 09/27/2017 8:11 PM Dictated Date/Time: 09/27/2017 8:08 PM The status of this report is Signed. Draft = Not yet reviewed or approved by Radiologist. Signed = Reviewed and approved by Radiologist. <AttendingPhy></AttendingPhy> <FamilyPhy>No Doctor, Assigned</FamilyPhy> < PrimaryPhy>No Doctor, Assigned</PrimaryPhy> <UnitNumber>[id number]</UnitNumber> <VisitNumber>[id number]</VisitNumber> <PatientName>RENEAPATO العلي</PatientName > <DateOfBirth>1975</DateOfBirth> <Location>[facility]</Location> <ServiceDate> 09/27/17</ServiceDate> <MNE>ESINDI</MNE> <OrderingPhy>Real Ott DO</ OrderingPhy> <OrderingPhyMNE>f rep ord dr tomlinson</OrderingPhyMNE> <DictatingPhyMNE> f rep dict dr tomlinson</DictatingPhyMNE> <CCListMNE>f rep ct mne</CCListMNE> < AdmittingPhyMNE>f pt admit dr tomlinson</AdmittingPhyMNE> <AttendingPhyMNE>f pt attend dr tomlinson</AttendingPhyMNE> <ConsultingPhyMNE>f pt consult dr tomlinson</ConsultingPhyMNE> <FamilyPhyMNE>f pt fam dr tomlinson</FamilyPhyMNE> <OtherPhyMNE>f pt other dr tomlinson</OtherPhyMNE> < PrimaryPhyMNE>f pt prim care dr tomlinson</PrimaryPhyMNE> <ReferringPhyMNE>f pt referring dr tomlinson</ReferringPhyMNE> Patient Name: PATO MEIER Unit Number: [id number] Dictated: 09/27/171736 Transcribed: 09/27/171736 PBS Printed Date/Time: [~ rep prt dt]/[~ rep prt tm] [~ rep ct labl] - [~ rep ct ivnm] [facility] [place] [place] [address] Dictated: 09/27/171736 Transcribed: 09/27/17 173 PBS Printed Date/Time: [~ rep prt dt]/[~ rep prt tm] [~ rep ct labl] - [~ rep ct ivnm] CHEST ONE VIEW PORTABLE CLINICAL HISTORY: 42 years-old Male presenting with EVALUATE ALTERED MENTAL STATUS/WEAKNESS. TECHNIQUE: Portable upright AP view of the chest was obtained. COMPARISON: 05/09/2017. FINDINGS: Cardiomediastinal silhouette normal. No focal opacity. No large effusion or pneumothorax. Osseous structures normal. Upper abdomen normal. IMPRESSION: 1. No acute cardiopulmonary disease. Electronically signed by: Ruben Lund M.D. 09/27/2017 5:38 PM Dictated Date/Time: 09/27/2017 5:37 PM The status of this report is Signed. Draft = Not yet reviewed or approved by Radiologist. Signed = Reviewed and approved by Radiologist. <AttendingPhy></AttendingPhy> <FamilyPhy>No Doctor, Assigned</FamilyPhy> < PrimaryPhy>No Doctor, Assigned</PrimaryPhy> <UnitNumber>[id number]</UnitNumber> <VisitNumber>[id number]</VisitNumber> <PatientName>RENEAPATO</PatientName > <DateOfBirth>1975</DateOfBirth> <Location>[facility]</Location> <ServiceDate> 09/27/17</ServiceDate> <MNE>ESINDI</MNE> <OrderingPhy>Real Ott DO</ OrderingPhy> <OrderingPhyMNE>f rep ord dr tomlinson</OrderingPhyMNE> <DictatingPhyMNE> f rep dict dr tomlinson</DictatingPhyMNE> <CCListMNE>f rep ct oze</CCListMNE> < AdmittingPhyMNE>f pt admit dr tomlinson</AdmittingPhyMNE> <AttendingPhyMNE>f pt attend dr tomlinson</AttendingPhyMNE> <ConsultingPhyMNE>f pt consult dr tomlinson</ConsultingPhyMNE> <FamilyPhyMNE>f pt fam dr tomlinson</FamilyPhyMNE> <OtherPhyMNE>f pt other dr mne</OtherPhyMNE> < PrimaryPhyMNE>f pt prim care dr tomlinson</PrimaryPhyMNE> <ReferringPhyMNE>f pt referring dr tomlinson</ReferringPhyMNE> Patient Name: PATO MEIER Unit Number: [id number] Dictated: 09/27/172001 Transcribed: 09/27/172001 ARG Printed Date/Time: [~ rep prt dt]/[~ rep prt tm] [~ rep ct labl] - [~ rep ct ivnm] [facility] Radiology Department [place] [id number] Dictated: 09/27/172001 Transcribed: 09/27/172001 ARG Printed Date/Time: [~ rep prt dt]/[~ rep prt tm] [~ rep ct labl] - [~ rep ct ivnm] [~ rep ct add3]] CT ABD/PELVIS IV CONTRAST ONLY CLINICAL HISTORY: Abdominal and back pain. Syncope. COMPARISON STUDY: None. TECHNIQUE: Following the IV administration of 92 mL of Optiray-320, CT scan of the abdomen and pelvis was performed from the lung bases to the proximal femurs. Images are reviewed in the axial, sagittal, and coronal planes. IV contrast was administered without complication. A dose lowering technique was utilized adhering to the principles of ALARA. CT DOSE: FINDINGS: Lower chest: The heart is normal in size and configuration, without pericardial effusion. The lung bases and pleural spaces are clear. Liver: There is a to small to characterize 5 mm hypodensity within the right hepatic lobe immediately beneath the dome the diaphragm. There is no ductal dilatation. The portal veins are patent. Gallbladder: Unremarkable. Spleen: Normal in size and attenuation. Pancreas: Unremarkable. Adrenal glands: Unremarkable. Kidneys: There is symmetric renal cortical enhancement. The kidneys are normal in size without hydronephrosis. Bowel: There are no transition zones indicate bowel obstruction. There is no evidence of acute appendicitis. There is no evidence of acute diverticulitis. Peritoneum: There is no intraperitoneal free air or abdominal ascites. Vasculature: The abdominal aorta is normal in course and caliber. Adenopathy: None. Pelvic viscera: The bladder, and pelvic viscera are unremarkable. Skeletal structures: No destructive osseous lesions are seen. IMPRESSION: 1. No acute intra-abdominal or pelvic findings 2. No evidence of bowel obstruction. No evidence of free air 3. Normal appendix. No evidence of acute diverticulitis. 4. No evidence of hydronephrosis. Electronically signed by: Augustine Callahan M.D. 09/27/2017 8:05 PM Dictated Date/Time: 09/27/2017 8:02 PM The status of this report is Signed. Draft = Not yet reviewed or approved by Radiologist. Signed = Reviewed and approved by Radiologist. <AttendingPhy></AttendingPhy> <FamilyPhy>No Doctor, Assigned</FamilyPhy> < PrimaryPhy>No Doctor, Assigned</PrimaryPhy> <UnitNumber>[id number]</UnitNumber> <VisitNumber>[id number]</VisitNumber> <PatientName>PATO MEIER</PatientName > <DateOfBirth>1975</DateOfBirth> <Location>[facility]</Location> <ServiceDate> 09/27/17</ServiceDate> <MNE>ESINDI</MNE> <OrderingPhy>Real Ott DO</ OrderingPhy> <OrderingPhyMNE>f rep ord dr tomlinson</OrderingPhyMNE> <DictatingPhyMNE> f rep dict dr tomlinson</DictatingPhyMNE> <CCListMNE>f rep ct mne</CCListMNE> < AdmittingPhyMNE>f pt admit dr tomlinson</AdmittingPhyMNE> <AttendingPhyMNE>f pt attend dr tomlinson</AttendingPhyMNE> <ConsultingPhyMNE>f pt consult dr tomlinson</ConsultingPhyMNE> <FamilyPhyMNE>f pt fam dr tomlinson</FamilyPhyMNE> <OtherPhyMNE>f pt other dr tomlinson</OtherPhyMNE> < PrimaryPhyMNE>f pt prim care dr tomlinson</PrimaryPhyMNE> <ReferringPhyMNE>f pt referring dr tomlinson</ReferringPhyMNE> Patient Name: PATO MEIER Unit Number: [id number] Dictated: 09/27/172004 Transcribed: 09/27/172004 ARG Printed Date/Time: [~ rep prt dt]/[~ rep prt tm] [~ rep ct labl] - [~ rep ct ivnm] [facility] [place] [place] [address] Dictated: 09/27/172004 Transcribed: 09/27/172004 ARG Printed Date/Time: [~ rep prt dt]/[~ rep prt tm] [~ rep ct labl] - [~ rep ct ivnm] CT ANGIOGRAM OF THE CHEST CLINICAL HISTORY: Atypical chest and back pain COMPARISON STUDY: March 2016 TECHNIQUE: Following the IV administration of 92 mL of Optiray-320, CT angiogram of the thorax was performed from the thoracic inlet to the lung bases utilizing the pulmonary embolus protocol. Images are reviewed in the axial, sagittal, and coronal planes. IV contrast was administered without complication. MIP imaging was performed. A dose lowering technique was utilized adhering to the principles of ALARA. CT DOSE: 1437.26 mGycm FINDINGS: No pathologically enlarged axillary mediastinal or hilar lymph nodes were visualized. There is a left aortic arch with an aberrant right subclavian artery. There is no evidence of thoracic aortic dilatation. There were no pulmonary artery filling defects to indicate acute pulmonary embolism. No pleural effusions are visualized. There is no focal pulmonary consolidation. IMPRESSION: 1. No evidence of acute pulmonary embolism 2. No evidence of focal pulmonary consolidation 3. 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 09/27/2017 8:08 PM Dictated Date/Time: 09/27/2017 8:05 PM The status of this report is Signed. Draft = Not yet reviewed or approved by Radiologist. Signed = Reviewed and approved by Radiologist. <AttendingPhy></AttendingPhy> <FamilyPhy>No Doctor, Assigned</FamilyPhy> < PrimaryPhy>No Doctor, Assigned</PrimaryPhy> <UnitNumber>[id number]</UnitNumber> <VisitNumber>[id number]</VisitNumber> <PatientName>PATO MEIER</PatientName > <DateOfBirth>1975</DateOfBirth> <Location>[facility]</Location> <ServiceDate> 09/27/17</ServiceDate> <MNE>ESINDI</MNE> <OrderingPhy>Ott, Real M DO</ OrderingPhy> <OrderingPhyMNE>f rep ord dr tomlinson</OrderingPhyMNE> <DictatingPhyMNE> f rep dict dr tomlinson</DictatingPhyMNE> <CCListMNE>f rep ct mne</CCListMNE> < AdmittingPhyMNE>f pt admit dr tomlinson</AdmittingPhyMNE> <AttendingPhyMNE>f pt attend dr tomlinson</AttendingPhyMNE> <ConsultingPhyMNE>f pt consult dr tomlinson</ConsultingPhyMNE> <FamilyPhyMNE>f pt fam dr tomlinson</FamilyPhyMNE> <OtherPhyMNE>f pt other dr tomlinson</OtherPhyMNE> < PrimaryPhyMNE>f pt prim care dr tomlinson</PrimaryPhyMNE> <ReferringPhyMNE>f pt referring dr tomlinson</ReferringPhyMNE> EKG RENEA PATO ID:[id number] 27-SEP-2017 16:48:24 [facility] Sinus rhythm with marked sinus arrhythmia Otherwise normal ECG When compared with ECG of 09-MAY-2017 12:30, No significant change was found 25mm/s 10mm/mV 150Hz 8.0 SP2 12SL 241 HD ELGIN: 12 Referred by: Unconfirmed Vent. rate 76 BPM [place] interval 148 ms QRS duration 88 ms QT/QTc 376/423 ms P-R-T axes 65 72 70 1975 (42 yr) Male Room: Loc:15 Medical Education Specialist:KEITH Guerrero ind: Impression Assessment and Plan Syncope and collapse/AK I-- The patient will be admitted to telemetry for serial cardiac enzymes, serial EKG's, cardiac rhythm monitoring and a 2-D echocardiogram with Dopplers. Creatinine 2.62, potassium 3.3. Hold lisinopril/HCTZ. Continue metoprolol tartrate 50 mg p.o. twice daily with hold parameters He has received 3 L normal saline in the ED to this point. Place on normal saline at 125 ML's per hour. Regular diet. Follow urine culture and sensitivity. Serial CBC with differential, chemistry profile and magnesium level. GERD-- Change omeprazole to pantoprazole per formulary interchange. Advanced Directives Existing Advance Directive: No Existing Living Will: No Existing Power of Illuminating Engineer: No Resuscitation Status VTE Prophylaxis Will order VTE Prophylaxis: Yes Social Service Consult None Apply
[2017-09-27] MEDS ORDERED: ENOXAPARIN 40 MG/0.4 ML SYR SC SCH (23:00)
[2017-09-27] MEDS: SODIUM CHLORIDE 0.9% 1000ML 1,000 ML IV SCH (23:36)
--- NOTE | 2017-09-28 00:25 | EMERGENCY ROOM VISIT NOTE ---
History Report prepared by Farideh: Bautista Arredondo Under the Supervision of: Dr. Real Ott D.O. First contact with patient: 16:47 Chief Complaint: SYNCOPE Stated Complaint: NECK,BACK OF HEAD, AND JAW PAIN History of Present Illness The patient is a 42 year old male who presents to the Emergency Room with complaints of syncope that occurred just prior to arrival today. The patient states he was doing yard work when his stomach started to hurt and he "knew he was going to pass out". He walked over to his golf cart like vehicle and sat down when he felt lightheaded, nauseous and had middle back pain. He lost consciousness while sitting and woke up slumped over, still in his vehicle. The patient also reports having chills, being diaphoretic, and shaky. The patient notes having a history of hypertension. Pt denies headache, change in vision, fevers, chest pain, shortness of breath, vomiting, diarrhea, pain with urination , and melena. Patient denies diabetes, hyperlipidemia, CAD, history of sudden at a young age, and smoking. 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 A total of 10 systems reviewed and were otherwise negative. Past Medical & Surgical Medical Problems: (1) NAOMIE (acute kidney injury) (2) HTN (hypertension) (3) Syncope and collapse Family History Hypertension Kidney disease Social History Smoking Status: Former Smoker Alcohol Use: none Housing Status: lives with family Occupation Status: unemployed Current/Historical Medications Scheduled Lisinopril/Hctz (Zestoretic 20MG/12.5MG), 1 TAB PO DAILY Metoprolol Tartrate (Lopressor) (Lopressor), 50 MG PO BID Omeprazole (Prilosec), 40 MG PO DAILY Scheduled PRN Quetiapine Fumarate (Seroquel), 100 MG PO HS PRN for Sleep Allergies Coded Allergies: Fentanyl (Verified Allergy, Severe, resp diff, 05/09/17) Naproxen (Unverified Allergy, Unknown, UPSET STOMACH, 05/09/17) Physical Exam Vital Signs Date Time Temp Pulse Resp B/P (MAP) Pulse Ox O2 Delivery O2 Flow Rate FiO2 09/27/17 21:15 88 16 135/92 98 Room Air 09/27/17 19:46 77 18 129/78 98 Room Air 09/27/17 18:26 69 18 109/77 99 Room Air 09/27/17 17:32 62 16 92/66 99 Room Air 09/27/17 17:11 63 94/78 73 90/58 68 91/65 09/27/17 17:11 98 Room Air 09/27/17 17:11 70 09/27/17 16:27 36.4 84 17 106/75 96 Room Air Physical Exam GENERAL: Sitting up in bed, alert, ill appearing, well nourished, diaphoretic and pale, non-toxic EYE EXAM: normal conjunctiva. PERRL and EOM's intact. OROPHARYNX: no exudate, no erythema, lips, buccal mucosa, and tongue normal and mucous membranes are moist NECK: supple, no nuchal rigidity, no adenopathy, non-tender LUNGS: Clear to auscultation. Normal chest wall mechanics HEART: no murmurs, S1 normal and S2 normal ABDOMEN: abdomen soft, non-tender, normo-active bowel sounds, no masses, no rebound or guarding. BACK: Back is symmetrical on inspection and there is no deformity, no midline tenderness, no CVA tenderness. SKIN: no rashes and no bruising UPPER EXTREMITIES: upper extremities are grossly normal. LOWER EXTREMITIES: No pitting edema. NEURO EXAM: Normal sensorium, cranial nerves II-XII intact, normal speech, no weakness of arms, no weakness of legs. No drift. Finger to nose intact. Medical Decision & Procedures ER Provider Diagnostic Interpretation: Radiology results as stated below per my review and the radiologist's interpretation: CT THORACIC SPINE WITHOUT CT DOSE: 880.50 mGycm CLINICAL HISTORY: Severe mid thoracic pain. Trauma. TECHNIQUE: Unenhanced images were obtained through the thoracic spine. Sagittal and coronal reformatted images were acquired. A dose lowering technique was utilized adhering to the principles of ALARA. COMPARISON STUDY: None. FINDINGS: There is no pneumothorax. There are no pleural effusions. There is no evidence for a paraspinal hematoma. No fractures or subluxations are visualized. There are mild multilevel degenerative changes IMPRESSION: 1. No fractures or subluxations identified. Electronically signed by: Augustine Callahan M.D. 09/27/2017 8:11 PM Dictated Date/Time: 09/27/2017 8:08 PM CHEST ONE VIEW PORTABLE CLINICAL HISTORY: 42 years-old Male presenting with EVALUATE ALTERED MENTAL STATUS/WEAKNESS. TECHNIQUE: Portable upright AP view of the chest was obtained. COMPARISON: 05/09/2017. FINDINGS: Cardiomediastinal silhouette normal. No focal opacity. No large effusion or pneumothorax. Osseous structures normal. Upper abdomen normal. IMPRESSION: 1. No acute cardiopulmonary disease. Electronically signed by: Ruben Lund M.D. 09/27/2017 5:38 PM Dictated Date/Time: 09/27/2017 5:[address] ABD/PELVIS IV CONTRAST ONLY CLINICAL HISTORY: Abdominal and back pain. Syncope. COMPARISON STUDY: None. TECHNIQUE: Following the IV administration of 92 mL of Optiray-320, CT scan of the abdomen and pelvis was performed from the lung bases to the proximal femurs. Images are reviewed in the axial, sagittal, and coronal planes. IV contrast was administered without complication. A dose lowering technique was utilized adhering to the principles of ALARA. CT DOSE: FINDINGS: Lower chest: The heart is normal in size and configuration, without pericardial effusion. The lung bases and pleural spaces are clear. Liver: There is a to small to characterize 5 mm hypodensity within the right hepatic lobe immediately beneath the dome the diaphragm. There is no ductal dilatation. The portal veins are patent. Gallbladder: Unremarkable. Spleen: Normal in size and attenuation. Pancreas: Unremarkable. Adrenal glands: Unremarkable. Kidneys: There is symmetric renal cortical enhancement. The kidneys are normal in size without hydronephrosis. Bowel: There are no transition zones indicate bowel obstruction. There is no evidence of acute appendicitis. There is no evidence of acute diverticulitis. Peritoneum: There is no intraperitoneal free air or abdominal ascites. Vasculature: The abdominal aorta is normal in course and caliber. Adenopathy: None. Pelvic viscera: The bladder, and pelvic viscera are unremarkable. Skeletal structures: No destructive osseous lesions are seen. IMPRESSION: 1. No acute intra-abdominal or pelvic findings 2. No evidence of bowel obstruction. No evidence of free air 3. Normal appendix. No evidence of acute diverticulitis. 4. No evidence of hydronephrosis. Electronically signed by: Augustine Callahan M.D. 09/27/2017 8:05 PM Dictated Date/Time: 09/27/2017 8:[address] ANGIOGRAM OF THE CHEST CLINICAL HISTORY: Atypical chest and back pain COMPARISON STUDY: March 2016 TECHNIQUE: Following the IV administration of 92 mL of Optiray-320, CT angiogram of the thorax was performed from the thoracic inlet to the lung bases utilizing the pulmonary embolus protocol. Images are reviewed in the axial, sagittal, and coronal planes. IV contrast was administered without complication. MIP imaging was performed. A dose lowering technique was utilized adhering to the principles of ALARA. CT DOSE: 1437.26 mGycm FINDINGS: No pathologically enlarged axillary mediastinal or hilar lymph nodes were visualized. There is a left aortic arch with an aberrant right subclavian artery. There is no evidence of thoracic aortic dilatation. There were no pulmonary artery filling defects to indicate acute pulmonary embolism. No pleural effusions are visualized. There is no focal pulmonary consolidation. IMPRESSION: 1. No evidence of acute pulmonary embolism 2. No evidence of focal pulmonary consolidation 3. 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 09/27/2017 8:08 PM Dictated Date/Time: 09/27/2017 8:05 PM Laboratory Results 09/27/17 17:03 Red Blood Count 6.00, Mean Corpuscular Volume 89.3, Mean Corpuscular Hemoglobin 32.8, Mean Corpuscular Hemoglobin Concent 36.8, Mean Platelet Volume 10.2, Neutrophils (%) (Auto) 83.5, Lymphocytes (%) (Auto) 9.8, Monocytes (%) (Auto) 4.7, Eosinophils (%) (Auto) 1.4, Basophils (%) (Auto) 0.3, Neutrophils # (Auto) 9.52, Lymphocytes # (Auto) 1.11, Monocytes # (Auto) 0.53, Eosinophils # (Auto) 0.16, Basophils # (Auto) 0.03 09/27/17 17:03 09/27/17 19:46 Test 09/27/17 17:03 09/27/17 19:46 09/27/17 20:18 White Blood Count 11.38 K/uL (4.8-10.8) Red Blood Count 6.00 M/uL (4.7-6.1) Hemoglobin 19.7 g/dL (14.0-18.0) Hematocrit 53.6 % (42-52) Mean Corpuscular Volume 89.3 fL (80-100) Mean Corpuscular Hemoglobin 32.8 pg (25-34) Mean Corpuscular Hemoglobin Concent 36.8 g/dl (32-36) Platelet Count 259 K/uL (130-400) Mean Platelet Volume 10.2 fL (7.4-10.4) Neutrophils (%) (Auto) 83.5 % Lymphocytes (%) (Auto) 9.8 % Monocytes (%) (Auto) 4.7 % Eosinophils (%) (Auto) 1.4 % Basophils (%) (Auto) 0.3 % Neutrophils # (Auto) 9.52 K/uL (1.4-6.5) Lymphocytes # (Auto) 1.11 K/uL (1.2-3.4) Monocytes # (Auto) 0.53 K/uL (0.11-0.59) Eosinophils # (Auto) 0.16 K/uL (0-0.5) Basophils # (Auto) 0.03 K/uL (0-0.2) RDW Standard Deviation 42.5 fL (36.4-46.3) RDW Coefficient of Variation 13.2 % (11.5-14.5) Immature Granulocyte % (Auto) 0.3 % Immature Granulocyte # (Auto) 0.03 K/uL (0.00-0.02) Prothrombin Time 10.5 SECONDS (9.0-12.0) Prothromb Time International Ratio 1.0 (0.9-1.1) Activated Partial Thromboplast Time 23.1 SECONDS (21.0-31.0) Partial Thromboplastin Ratio 0.9 Anion Gap 17.0 mmol/L (3-11) Est Creatinine Clear Calc Drug Dose 37.9 ml/min Estimated GFR () 33.4 Estimated GFR (Non- 28.8 BUN/Creatinine Ratio 6.7 (10-20) Calcium Level 10.3 mg/dl (8.5-10.1) Total Bilirubin 1.3 mg/dl (0.2-1) Direct Bilirubin 0.3 mg/dl (0-0.2) Aspartate Amino Transf (AST/SGOT) 23 U/L (15-37) Alanine Aminotransferase (ALT/SGPT) 42 U/L (12-78) Alkaline Phosphatase 93 U/L (45-117) Troponin I < 0.015 ng/ml (0-0.045) Total Protein 9.1 gm/dl (6.4-8.2) Albumin 5.0 gm/dl (3.4-5.0) Thyroid Stimulating Hormone (TSH) 1.990 uIu/ml (0.300-4.500) Total Creatine Kinase 64 U/L (39-308) Urine Color YELLOW Urine Appearance CLEAR (CLEAR) Urine pH 5.0 (4.5-7.5) Urine Specific [place] 1.043 (1.000-1.030) Urine Protein TRACE (NEG) Urine Glucose (UA) NEG (NEG) Urine Ketones TRACE (NEG) Urine Occult Blood NEG (NEG) Urine Nitrite NEG (NEG) Urine Bilirubin NEG (NEG) Urine Urobilinogen NEG (NEG) Urine Leukocyte Esterase NEG (NEG) Urine WBC (Auto) 1-5 /hpf (0-5) Urine RBC (Auto) 0-4 /hpf (0-4) Urine Hyaline Casts (Auto) 5-10 /lpf (0-5) Urine Epithelial Cells (Auto) 20-30 /lpf (0-5) Urine Bacteria (Auto) NEG (NEG) Laboratory results per my review. Medications Administered Medications (Trade) Dose Ordered Sig/Gale Route Start Time Stop Time Status Last Admin Dose Admin Sodium Chloride 1,000 ml @ 999 mls/hr Q1H1M STAT IV 09/27/17 17:04 09/27/17 18:04 DC 09/27/17 17:04 999 MLS/HR Ondansetron HCl (Zofran Inj) 4 mg NOW STAT IV 09/27/17 17:04 09/27/17 17:06 DC 09/27/17 17:04 4 MG Sodium Chloride 2,000 ml @ 999 mls/hr Q2H1M STAT IV 09/27/17 17:47 09/27/17 19:47 DC 09/27/17 17:47 999 MLS/HR Sodium Chloride 2,000 ml @ 999 mls/hr Q2H1M STAT IV 09/27/17 19:18 09/27/17 21:18 DC 09/27/17 19:18 999 MLS/HR Sodium Chloride 1,000 ml @ 125 mls/hr Q8H IV 09/27/17 21:30 10/27/17 21:29 09/27/17 23:36 125 MLS/HR ECG Per My Interpretation Indication: syncope Rate (beats per minute): 76 Rhythm: sinus rhythm Findings: other (Normal axis, Sinus arrhythmia present) ED Course ED COURSE: Vital signs were reviewed and showed Hypotension The patients medical record was reviewed The above diagnostic studies were performed and reviewed. ED treatments and interventions as stated above. 1655: The patient was evaluated in room B4B. A complete history and physical examination was performed. 1704: Zofran 4mg IV, Sodium Chloride 1000ml @ 999mls/hr IV 1716: I reevaluated the patient and he is looking and feeling better. 1728: I checked on the patient and he is still feeling the back pain, but all of his other symptoms have resolved. His systolics is 98. 1747: Sodium Chloride 2000ml @ 999mls/hr IV 1838: Upon reevaluation, the patient is resting in bed. I discussed my findings with the patient and he understands and agrees with the treatment plan. Based on the patients age, coexisting illnesses, exam and lab findings the decision to treat as an inpatient was made. The patient remained stable while under my care. The patient will be evaluated for further management by Dr. Carrasquillo - [facility] Medical Decision Differential diagnosis includes etiologies such as vasovagal event, infection, hypoglycemia, electrolyte abnormalities, cardiac sources, intracerebral event, toxicologic, neurologic, as well as others were entertained. Patient is a 42-year-old male who presents the ER for syncope and stomach pain. Patient notes that he was coming along and became very nauseous and felt like he needed to have bowel movement. Following this he passed out. On presentation systolic blood pressures are in the 80s. This was persistent for at least an hour. Patient was neurologically intact. He was diaphoretic. CBC was unremarkable. BMP with a potassium of 3.3. Creatinine was elevated 2.6 off of a baseline of 1.2. Bilirubin was slightly elevated and LFTs were normal. Troponin was negative. CK was 64 after multiple liters of fluid. TSH was normal. Patient was given IV 3 L normal saline. UA was unremarkable. I did perform a CT of his chest, abdomen and T-spine. There is no acute pathology found. I did perform these due to his hypotension and complaining of belly pain going through to his back. Updated patient at bedside. Discussed with internal medicine for observation secondary to NAOMIE in the setting of hypotension which was likely vasovagal. Medication Reconcilliation Current Medication List: was personally reviewed by me Blood Pressure Screening Patient's blood pressure: Low blood pressure Consults Time Called: 1834 Consulting Physician: Dr. Foreign Vital [facility] Returned Call: [phone] I reviewed the patient's case with Dr. Foreign Vital [facility]. He will evaluate the patient for further management. Impression Primary Impression: Syncope Additional Impression: NAOMIE (acute kidney injury) Scribe Attestation The scribe's documentation has been prepared under my direction and personally reviewed by me in its entirety. I confirm that the note above accurately reflects all work, treatment, procedures, and medical decision making performed by me. Departure Information Dispostion Being Evaluated By Hospitalist Referrals No Doctor, Assigned (PCP) Forms HOME CARE DOCUMENTATION FORM, IMPORTANT VISIT INFORMATION Patient Instructions My [facility] Problem Qualifiers Primary Impression: Syncope Syncope type: unspecified Qualified Codes: R55 - Syncope and collapse
[2017-09-28 03:25] VITALS: BP_SYST 154; BP_SYST 160; BP_DIAS 83; BP_DIAS 91; PULSE 79; PULSE 93; TEMP 36.6; Ht 177.8 cm; Wt 90.9 kg
[2017-09-28 03:59] VITALS: BP_SYST 138; BP_SYST 160; BP_DIAS 91; BP_DIAS 98; PULSE 80; TEMP 36.9; O2SAT 99
[2017-09-28] MEDS: SODIUM CHLORIDE 0.9% 1000ML 1,000 ML IV SCH (05:34)
[2017-09-28 06:02] LABS: BASO % 0.2 %; BASO ABS # 0.01 K/uL (0-0.2); EOS % 2.7 %; EOS ABS # 0.17 K/uL (0-0.5); HEMATOCRIT 43.4 % (42-52); HEMOGLOBIN 15.6 g/dL (14.0-18.0); IG# 0.01 K/uL (0.00-0.02); LYMPH % 24.7 %; LYMPH ABS # 1.54 K/uL (1.2-3.4); MEAN CELL VOLUME 90.6 fL (80-100); MEAN CORPUSCULAR HEMOGLOBIN 32.6 pg (25-34); MEAN CORPUSCULAR HGB CONC 35.9 g/dl (32-36); MEAN PLATELET VOLUME 9.8 fL (7.4-10.4); MONO % 8.8 %; MONO ABS # 0.55 K/uL (0.11-0.59); NEUT % 63.4 %; NEUT ABS # 3.96 K/uL (1.4-6.5); PLATELET COUNT 153 K/uL (130-400); RED CELL DISTRIBUTION WIDTH CV 13.2 % (11.5-14.5); RED CELL DISTRIBUTION WIDTH SD 43.4 fL (36.4-46.3); WHITE BLOOD COUNT 6.24 K/uL (4.8-10.8)
[2017-09-28 06:09] LABS: PTT PATIENT 27.2 SECONDS (21.0-31.0)
[2017-09-28 06:39] LABS: ALBUMIN 3.5 gm/dl (3.4-5.0); CREATININE 1.38 mg/dl (0.60-1.40); POTASSIUM 3.5 mmol/L (3.5-5.1); TOTAL PROTEIN 6.6 gm/dl (6.4-8.2)
[2017-09-28 06:49] LABS: CALCIUM 8.2 mg/dl (8.5-10.1)
[2017-09-28 06:53] VITALS: BP 126/86; PULSE 67; TEMP 36.5; O2SAT 98
[2017-09-28] MEDS ORDERED: METOPROLOL TARTRATE 50 MG TAB PO SCH (09:00)
[2017-09-28] MEDS ORDERED: PANTOprazole SOD 40 MG TAB PO SCH (09:00)
--- NOTE | 2017-09-28 10:41 | Discharge Instructions ---
Discharge Instructions Date of Service Sep 28, 2017. Admission Reason for Admission: Migel(Acute Kidney Injury) Syncope And Collapse Discharge Discharge Diagnosis / Problem: Fainting Episode Discharge Goals Goal(s): Improve function Activity Recommendations Activity Limitations: resume your previous activity . Instructions / Follow-Up Instructions / Follow-Up aisha Amanda were admitted to [facility] due to a fainting episode. This was likely due to dehydration as your lab values indicated that you were on the dry side. We also checked an EKG (electrical tracing of your heart) and troponin (enzyme that measures damage to your heart) and these were both normal. We treated you with IV fluids, you received over 5L in fluids. Your kidney numbers were elevated as well, which can happen with dehydration, and then improved after we gave you fluids. Please ensure you drink at least 60 ounces of fluid a day (about 3 normal sized water bottles). If you are out working in the sun all day, or feel dehydrated, please increase this to 80 ounces of fluids. Note that coffee,alcohol and tea do not count towards this.fluid goal as these drinks will actually cause you to lose fluid as they are diuretics. We also held your lisinopril and HCTZ (blood pressure medicines) while you were here. We recommend not taking them today, and restarting them tomorrow. Please also follow up with your primary care doctor. If you experience any further fainting episodes, have chest pain, lightheadedness, dizziness, or shortness of breath, please seek medical attention. Current Hospital Diet Patient's current hospital diet: Regular Diet Discharge Diet Recommended Diet: Regular Diet Pending Studies Studies pending at discharge: no Medical Emergencies . Who to Call and When: Medical Emergencies: If at any time you feel your situation is an emergency, please call 911 immediately. . Non-Emergent Contact Non-Emergency issues call your: Primary Care Provider . . "Provider Documentation" section prepared by Guillermo Anthony. .
--- NOTE | 2017-09-28 10:53 | Discharge Summary ---
Discharge Summary Date of Service Sep 28, 2017. Discharge Summary Admission Date: Sep 27, 2017 at 21:30 Discharge Date: Sep 28, 2017 Discharge Disposition: Home Principal Diagnosis: Syncope, Prerenal Azotemia Problems/Secondary Diagnoses: 1) Hypertension Immunizations: Have You Had Influenza Vaccine: Unknown History of Tetanus Vaccine?: Unknown History of Pneumococcal: Unknown History of Hepatitis B Vaccine: Unknown Procedures: CT Thoracic Spine IMPRESSION: 1. No fractures or subluxations identified. CXR IMPRESSION: 1. No acute cardiopulmonary disease. CT Abdomen/Pelvis IMPRESSION: 1. No acute intra-abdominal or pelvic findings 2. No evidence of bowel obstruction. No evidence of free air 3. Normal appendix. No evidence of acute diverticulitis. 4. No evidence of hydronephrosis. CTA IMPRESSION: 1. No evidence of acute pulmonary embolism 2. No evidence of focal pulmonary consolidation 3. Left aortic arch with an aberrant right subclavian artery Medication Reconciliation Continued Medications: Lisinopril/Hctz (Zestoretic 20MG/12.5MG) Tab 1 TAB PO DAILY, TAB Metoprolol Tartrate (Lopressor) (Lopressor) 50 Mg Tab 50 MG PO BID, TAB Omeprazole (Prilosec) 40 Mg Cap 40 MG PO DAILY, CAP Quetiapine Fumarate (Seroquel) 100 Mg Tab 100 MG PO HS PRN for Sleep, TAB Discharge Exam Mr. Cristina reports he feels much better today. He denies chest pain, palpitations , shortness of breath, dizziness or lightheadedness this morning. He states he felt lightheaded prior to his syncopal event, but denies any other symptoms prior to fainting. 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 Review of Systems: Constitutional: No fever, No chills Respiratory: No shortness of breath Cardiovascular: No chest pain, No palpitations Abdomen: No pain, No nausea, No vomiting, No diarrhea, No constipation Neurologic: No weakness, No numbness/tingling, No balance problems Physical Exam: General Appearance: WD/WN, no apparent distress Eyes: normal inspection, PERRL Respiratory/Chest: lungs clear, normal breath sounds, no respiratory distress, no accessory muscle use Cardiovascular: regular rate, rhythm, no edema, no murmur Neurologic/Psychiatric: switch coupler II-XII nml as tested, no motor/sensory deficits , alert, normal mood/affect, oriented x 3 Hospital Course Mr. Cristina is a 42-year-old male who presents to the emergency department with a syncopal episode that occurred today just prior to arrival. Syncope - likely secondary to dehydration given poor fluid intake and prodromal symptoms prior to fainting - EKG and troponin WNL - telemetry monitoring overnight w/out arrhythmias - electrolytes WNL - labs appeared to be hemoconcentrated, improved today after fluid resuscitation - imaging results normal (see above) - no abnormalities seen on CT thoracic spine, CTA, CT abdomen/pelvis, CXR Prerenal Azotemia - creatinine elevated to 2.62 on admission - pt received >5L of fluids, improved to 1.38 on discharge - recommended holding BP meds today and restarting tomorrow - discussed increasing fluid intake to at least 60 ounces a day Resident Physician Supervision Note: I interviewed and examined the patient. Discussed with Dr. Anthony and agree with findings and plan as documented in the note. Any exceptions or clarifications are listed here: None Documented By: Real Hester feeling better understands he needs to drink more vitals noted nad breathing unlabored no pallor or icterus syncope / severe prerenal azotemia -- all due to dehydration - improved. stable for home. close PCP f/u. ok to resume home BP meds tomorrow. would have outpt BMP next week. Total Time Spent: Greater than 30 minutes This includes examination of the patient, discharge planning, medication reconciliation, and communication with other providers. Discharge Instructions Please refer to the electronic Patient Visit Report (Discharge Instructions) for additional information. Resident Tracking Resident Involvement: Resident Care Provided Care Provided: Adult Hospital Medicine
[2017-09-28 11:30] VITALS: BP 144/95; PULSE 64; TEMP 36.5; O2SAT 97
[2017-09-28 12:10] VITALS: BP 126/86; PULSE 67; TEMP 36.5; O2SAT 98
== END 2017-09-28 12:00 | disposition home or self-care (01) | DRG 641 ==
LOC: C.EDB 16:27 → C.2T 21:30 → ENRESERV 22:09
PROVIDERS: ADMIT Hospitalist; ATTEND Family Medicine
DX: E86.0 Dehydration (principal); R55 Syncope and collapse; R79.89 Other specified abnormal findings of blood chemistry; I10 Essential (primary) hypertension; K21.9 Gastro-esophageal reflux disease without esophagitis; Z79.899 Other long term (current) drug therapy; Z88.6 Allergy status to analgesic agent; Z88.5 Allergy status to narcotic agent; Z87.891 Personal history of nicotine dependence; Z82.49 Family history of ischemic heart disease and other diseases of the circulatory system

== ENCOUNTER 2018-12-16 21:51 | Inpatient (IN) ==
[2018-12-16] MEDS ORDERED: LORazepam 1 MG TAB SL STA (22:52)
[2018-12-16 23:18] LABS: Appearance Urine Clear (Clear); Bilirubin Urine Negative (Negative); Blood Urine Negative (Negative); Color Urine Dark Yellow; Glucose Urine UA Negative (Negative); Ketones Urine Trace (Negative); Leukocyte Esterase Urine Negative (Negative); Nitrite Urine Negative (Negative); Protein Urine Negative (Negative); Specific Gravity Urine 1.031 (1.000-1.030); Urobilinogen Urine Negative (Negative)
[2018-12-16 23:40] LABS: Amphetamines+Metham, Urine Neg (Neg); Barbiturates, Urine Neg (Neg); Benzodiazepine, Urine Neg (Neg); Cocaine, Urine Neg (Neg); MDMA (Ecstacy), Urine Neg (Neg); Methadone, Urine Neg (Neg); Opiate, Urine Neg (Neg); Phencyclidine, Urine Neg (Neg)
[2018-12-17 00:05] LABS: Basophils # (auto) 0.02 K/uL (0-0.2); Basophils % (auto) 0.2 %; Eosinophils # (auto) 0.13 K/uL (0-0.5); Eosinophils % (auto) 1.4 %; Hematocrit (blood only) 45.9 % (42-52); Hemoglobin 16.9 g/dL (14.0-18.0); Immature Granulocytes # (auto) 0.02 K/uL (0.00-0.02); Immature Granulocytes % (auto) 0.2 %; Lymphocytes # (auto) 1.44 K/uL (1.2-3.4); Lymphocytes % (auto) 15.7 %; Mean Corpuscular Hemoglobin 33.4 pg (25-34); Mean Corpuscular Hgb Conc 36.8 g/dL (32-36); Mean Corpuscular Volume 90.7 fL (80-100); Monocytes # (auto) 0.45 K/uL (0.11-0.59); Monocytes % (auto) 4.9 %; Neutrophils # (auto) 7.13 K/uL (1.4-6.5); Neutrophils % (auto) 77.6 %; Platelet Count 225 K/uL (130-400); RDW Coefficient of Variation 12.4 % (11.5-14.5); RDW Standard Deviation 41.1 fL (36.4-46.3); Red Blood Count 5.06 M/uL (4.7-6.1); White Blood Count 9.19 K/uL (4.8-10.8)
[2018-12-17 00:22] LABS: Albumin Level 4.4 gm/dl (3.4-5.0); Calcium 9.2 mg/dl (8.5-10.1); Creatinine Clr Calc Pharmacy 78.7 ml/min; Est GFR (African American) 81.2; Est GFR (Non-African American) 70.1; Potassium 3.6 mmol/L (3.5-5.1)
[2018-12-17 00:33] LABS: Albumin Globulin Ratio 1.2 (0.9-2); Bilirubin,Total 0.5 mg/dl (0.2-1); Globulin 3.6 gm/dl (2.5-4.0); Thyroid Stimulating Hormone 1.79 uIu/ml (0.300-4.500)
[2018-12-17 00:36] LABS: Acetaminophen < 2 ug/ml (10-30); Salicylate < 1.7 mg/dl (2.8-20)
[2018-12-17] MEDS ORDERED: MAGNESIUM HYDROXIDE SUSP 30 ML UDC PO PRN (06:25)
[2018-12-17] MEDS ORDERED: SODIUM CHLORIDE 0.65% NA SOLN 45 ML (OCEAN) PRN (06:25)
[2018-12-17] MEDS ORDERED: BISMUTH SUBSALICYLATE PER ML OMNICELL CHARGE PO PRN (06:25)
[2018-12-17] MEDS ORDERED: ALUMINUM/MAGNESIUM SUSP 30 ML UDC PO PRN (06:25)
[2018-12-17] MEDS ORDERED: ACETAMINOPHEN 325 MG TAB PO PRN (06:25)
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
--- NOTE | 2018-12-17 08:44 | History & Physical ---
Date of Service December 17, 2018 Impression / Recommendations Impression Patient with self-reported history of PTSD who presents with thoughts to harm his girlfriend after they got into an argument over him contacting other women. He has a history of aggression and meets criteria for ASD. He reports a history of PTSD, but was unable to complete the assessment due to escalating aggression and hostility. He stated he no longer wanted treatment, and requested discharge, so was discharged AMA. He does not meet criteria for involuntary commitment, and is unlikely to benefit from continued inpatient treatment. (1) Antisocial behavior: -Rule out antisocial personality disorder. Per review of records, patient has had multiple hospitalizations for anger, aggression and urges to harm others. He also reports a history of multiple arrests and incarcerations, impulsivity, and demonstrates lack of remorse. -He denies plan or intent to harm anyone at this time, but on presentation reported impulses to harm his girlfriend in the context of the argument last night. He did not sign a release of information for her, so we will contact police to complete a duty to warn. Present on Admission?: Yes (2) Cannabis abuse: -Substance use increases risk of violence, so recommend avoidance of controlled substances including alcohol, illicit drugs, and prescription medications that are addictive or abusable. Present on Admission?: Yes (3) PTSD (post-traumatic stress disorder): Patient reports a history of PTSD, for which he is not currently in treatment. He reported trials of multiple antidepressants in the past, which he said were not helpful. Outpatient therapy for anger management might be helpful if he were willing to engage, but currently unwilling for treatment. Present on Admission?: Yes Risk Factors Assessment Risk factors were mitigated by admission to the inpatient unit, attempts to engage him in treatment, review of available records in the EMR, and review of recommendations for outpatient treatment and abstinence from substances. He became hostile during the admission assessment, and requested to leave AMA. Based on the available information, he appears to have antisocial personality disorder and substance use disorder. Although he remains at increased risk for harm to both himself and others compared to the general population, his remaining risk factors are not likely to be mitigated by further inpatient treatment. Additionally, I do not believe that his risk is directly related to mental illness, but instead represents criminal behavior and use of intimidation to manipulate others. He is not manic nor psychotic, and was unwilling to cooperate with the initial assessment, escalating to a hostility and threats to staff. Male: Yes : Yes Do You Have Access To A Gun?: No (patient reports he is convicted felon) Health Problems: No Mental Health Diagnoses: Yes Substance Use Disorders: Yes Previous Attempt: No Previous Psychiatric Hospitalization: Yes Protective Factors Assessment : No Responsible for Young Children: Yes Employed: Yes (Self employed) Stable Relationships: No Psychiatric History Identifying Data PATO MEIER is a 43-year-old M who currently lives in [place], has a self-reported history of depression and anxiety, and was admitted on 12/17/18 05:17 on a 201 voluntary commitment for homicidal ideation after police were called due to a fight with his girlfriend. Chief Complaint "Well when you wake up to a phone call to the one who got this fucking shit st ey[facility]..." History of Present Illness Patient presented to the ER last night, 12/16/2018, with police after his girlfriend called in due to a verbal altercation. He appeared manic and extremely anxious, had difficulty focusing and answering questions appropriately. Police stated the patient reported homicidal thoughts, wanting to hurt anyone who he thought might take his son away from him. He told the ER physician that he had homicidal thoughts toward his girlfriend, and that he called the police himself to stop him from hurting her. He said that he was being "held hostage" in his own house for the past week, and that he could not leave, as he would not be allowed back in. He stated he had been in group home in [place] for 6-1/2 years, and believed he had PTSD due to things he witnessed there. He reported constant racing thoughts, panic attacks that last for days, difficulty sleeping, excessive worry, and use of marijuana to calm himself down. He said that his anger was getting out of control, and he was afraid that if he went home he would hurt someone, and wanted to get help. He was placed in a private room due to his homicidal ideation and history of violence. On my assessment this morning, the patient is extremely angry, focused on his girlfriend and blaming her for his current situation and emotions. He states that he is not happy in the relationship, is "not sexually attracted to her, I have to get drunk or do drugs to have sex with her." They got into a fight yesterday after she looked at his phone and saw that he had been video chatting with another woman, and "she used my son as a pawn." He says the police as he feared he would hurt his girlfriend, and he got angry at one of the mogul operator because "he's the type that shoots people." He says that the officer was staring at him and "my PTSD kicked in." He says the police asked him if he wanted to leave, and he said yes, and they brought him here. He denies that he was physically aggressive to his girlfriend. He reports "flashbacks, drastic nightmares, bad dreams about my son, I think people are after me, mogul operator." He endorses racing thoughts and being easily angered. He says he witnessed stabbings in group home. He denies persistent low mood, symptoms of chinedu, and psychosis. 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 He continued to escalate, became hostile, did not respond well to attempts to verbally de-escalate, and interview was terminated when he stood and yelled "fuck you bitch, you people are all the same, do your fucking job you fucking bitch!" He was unable to participate in remainder of the assessment. Shortly afterwards, security arrived on the unit, and nursing staff met with him, but he continued to yell, curse, and behave in an agitated and menacing manner. The patient requested discharge, and was discharged AMA. As he was leaving, he was yelling at staff "You all are a bunch of coward ass bitches motherfuckers!" Past Psychiatric History Previous Psych History: Per review of hospital EMR: Patient seen in the ER 03/2017 due to "out of control" arguments with his girlfriend, and patient feared he was going to hurt her, so called [facility]. Had been drinking (BAL 124), and was discharged home with recommendations for OP treatment. Seen by PCP multiple times in 09/2018, got opiate pain medication for back pain. Saw Pain Management 10/2018, diagnosed sacroiliitis, recommended PT and SI joint injections. PCP then prescribed gabapentin, Robaxin, and hydrocodone. Outpatient Services: None currently. Previous Psych Admissions: [facility] Do You Have Access To A Gun?: No (patient reports he is convicted felon) History of Previous Suicide Attempt: No Past Medication Trials: mirtazapine - 2018 quetiapine - 2018 trazodone - 2018 Multiple unknown antidepressants and "blood pressure medication" for PTSD, which he says were ineffective Past Head Trauma/Neuro History PCP is Dr. Gail Miranda, [facility] Allergies Allergy/AdvReac Type Severity Reaction Status Date / Time fentanyl Allergy Severe resp diff Verified 11/01/18 15:51 naproxen Allergy Unknown UPSET Verified 11/01/18 15:51 STOMACH Home Medications Home Medications Medication Instructions Recorded Confirmed Type No Known Home Medications 12/17/18 12/17/18 History Family History Family History of: Doesn't Know Alcohol History Hx of Alcohol Use Over the Past 12 Months: No AUDIT Total Score: 0 Smoking Use Have You Smoked or Used Tobacco Products in the Last 30 Days: No tobacco type: cigarettes Smoking Status: Former smoker Substance History Hx of Prescription Med Misuse Over the Past 12 Months: No Hx of Over the Counter Med Misuse Over the Past 12 Months: No Hx of Inhalent Misuse Over the Past 12 Months: No Hx of Organic Substance Use Over the Past 12 Months: Yes (marijuana, UDS +) Hx of Illegal Substances/Street Drug Use Over Past 12 Months: No Problems as a Result of Past Substance Use: Arrested Personal History Living Arrangements: Home Living Arrangements Comments: in [place] Number Of Children: 2 Beliefs That Will Affect Care: None Legal Problems Comment: H/o felony assault charges in [place] in 2016 Hx Legal Problems: Yes (patient reports being in group home for 6 years in [place]) Hx Traumatic Life Events: Yes Psychological Trauma History Comment: patient reports his time in group home was traumatic Patient History Medical History (Updated 12/17/18 @ 11:25 by Hanny Brito MD) NAOMIE (acute kidney injury) Anxiety (Chronic) Bronchitis (Acute) GERD (gastroesophageal reflux disease) (Chronic) HTN (hypertension) (Chronic) PTSD (post-traumatic stress disorder) (Chronic) Sacroiliitis (Acute) Surgical History History of hernia surgery when 1 year old Family History (Updated 12/16/18 @ 23:28 by Ernst Johnson) Other No significant family history Social History Preferred Language: Mongolian Communication Ability: Effective Visual Impairment: No Limitations Hearing Ability: Normal Academic Advisor Required: No Beliefs That Will Affect Care: None marital status: Single Current Living Situation: Family current occupational status: unemployed current occupation: self employed in construction, 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 Bilateral forearms and hands with multiple tattoos. Seated on the edge of his bed, muscles tensed. Eye Contact: + poor eye contact Motor Behavior: + psychomotor agitation Loud, excessive, frequent expletives Affect: + angry affect and + constricted affect Thought Process: + circumstantial thought process Thought Content: + preoccupation (With anger at girlfriend) Suicidal Thoughts: denies suicidal thoughts Endorses urges to harm girlfriend, but denies intent to act Cognition: recent memory grossly intact and language grossly intact Insight: + poor insight Judgement: + poor judgement Vital Signs (Past 24 Hours): Last Vital Signs Temp 36.7 C 12/17/18 06:38 Pulse 78 12/17/18 06:38 Resp 18 12/17/18 06:38 BP 139/75 12/17/18 06:38 Pulse Ox 98 12/17/18 06:00 Exam Statement: A physical exam was performed in the ER prior to admission to the unit by Dr. Albert Block. I accept that physical as correct/medical clearance for the inpatient physical exam. Results & Data Laboratory Results Laboratory Results - last 24 hr 12/16/18 12/16/18 12/16/18 22:55 22:55 22:55 WBC RBC Hgb Hct MCV MCH MCHC RDW Std Deviation RDW Coeff of Deana Plt Count MPV Immature Gran % (Auto) Neut % (Auto) Lymph % (Auto) Mclennan % (Auto) Eos % (Auto) Baso % (Auto) Immature Gran # (Auto) Neut # (Auto) Lymph # (Auto) Mclennan # (Auto) Eos # (Auto) Baso # (Auto) Sodium Potassium Chloride Carbon Dioxide Anion Gap BUN Creatinine Est Cr Clr Drug Dosing Est GFR ( Amer) Est GFR (Non-Af Amer) BUN/Creatinine Ratio Glucose Calcium Total Bilirubin AST ALT Alkaline Phosphatase Total Protein Albumin Globulin Albumin/Globulin Ratio TSH Urine Color Dark Yellow Urine Appearance Clear Urine pH 5.0 Ur Specific Caney 1.031 H Urine Protein Negative Urine Glucose (UA) Negative Urine Ketones Trace H Urine Blood Negative Urine Nitrite Negative Urine Bilirubin Negative Urine Urobilinogen Negative Ur Leukocyte Esterase Negative Salicylates Urine Opiates Screen Neg Ur Methadone, Qual Neg Acetaminophen Urine Barbiturates Neg Ur Phencyclidine (PCP) Neg U Amphetamin/Meth Scrn Neg MDMA (Ecstasy) Screen Neg U Benzodiazepines Scrn Neg Ur Cocaine Metabolite Neg U Marijuana (THC) Screen Pos H U Marijuana THC Carboxy Pending Ethyl Alcohol mg/dL 12/16/18 12/16/18 12/16/18 23:50 23:50 23:50 WBC 9.19 RBC 5.06 Hgb 16.9 Hct 45.9 MCV 90.7 MCH 33.4 MCHC 36.8 H RDW Std Deviation 41.1 RDW Coeff of Deana 12.4 Plt Count 225 MPV 10.0 Immature Gran % (Auto) 0.2 Neut % (Auto) 77.6 Lymph % (Auto) 15.7 Mclennan % (Auto) 4.9 Eos % (Auto) 1.4 Baso % (Auto) 0.2 Immature Gran # (Auto) 0.02 Neut # (Auto) 7.13 H Lymph # (Auto) 1.44 Mclennan # (Auto) 0.45 Eos # (Auto) 0.13 Baso # (Auto) 0.02 Sodium 140 Potassium 3.6 Chloride 106 Carbon Dioxide 26 Anion Gap 8.0 BUN 13 Creatinine 1.25 Est Cr Clr Drug Dosing 78.7 Est GFR ( Amer) 81.2 Est GFR (Non-Af Amer) 70.1 BUN/Creatinine Ratio 10.0 Glucose 134 H Calcium 9.2 Total Bilirubin 0.5 AST 13 L ALT 24 Alkaline Phosphatase 86 Total Protein 8.0 Albumin 4.4 Globulin 3.6 Albumin/Globulin Ratio 1.2 TSH 1.790 Urine Color Urine Appearance Urine pH Ur Specific Caney Urine Protein Urine Glucose (UA) Urine Ketones Urine Blood Urine Nitrite Urine Bilirubin Urine Urobilinogen Ur Leukocyte Esterase Salicylates < 1.7 L Urine Opiates Screen Ur Methadone, Qual Acetaminophen < 2 L Urine Barbiturates Ur Phencyclidine (PCP) U Amphetamin/Meth Scrn MDMA (Ecstasy) Screen U Benzodiazepines Scrn Ur Cocaine Metabolite U Marijuana (THC) Screen U Marijuana THC Carboxy Ethyl Alcohol mg/dL 12/16/18 23:50 WBC RBC Hgb Hct MCV MCH MCHC RDW Std Deviation RDW Coeff of Deana Plt Count MPV Immature Gran % (Auto) Neut % (Auto) Lymph % (Auto) Mclennan % (Auto) Eos % (Auto) Baso % (Auto) Immature Gran # (Auto) Neut # (Auto) Lymph # (Auto) Mclennan # (Auto) Eos # (Auto) Baso # (Auto) Sodium Potassium Chloride Carbon Dioxide Anion Gap BUN Creatinine Est Cr Clr Drug Dosing Est GFR ( Amer) Est GFR (Non-Af Amer) BUN/Creatinine Ratio Glucose Calcium Total Bilirubin AST ALT Alkaline Phosphatase Total Protein Albumin Globulin Albumin/Globulin Ratio TSH Urine Color Urine Appearance Urine pH Ur Specific Caney Urine Protein Urine Glucose (UA) Urine Ketones Urine Blood Urine Nitrite Urine Bilirubin Urine Urobilinogen Ur Leukocyte Esterase Salicylates Urine Opiates Screen Ur Methadone, Qual Acetaminophen Urine Barbiturates Ur Phencyclidine (PCP) U Amphetamin/Meth Scrn MDMA (Ecstasy) Screen U Benzodiazepines Scrn Ur Cocaine Metabolite U Marijuana (THC) Screen U Marijuana THC Carboxy Ethyl Alcohol mg/dL < 3.0 Current Inpatient Medications Current Inpatient Medications: Current Inpatient Medications Acetaminophen (Tylenol) 650 mg PO Q4H PRN PRN Reason: Headache or Minor Fever Stop: 01/16/19 06:24 Al Hydrox/Mg Hydrox/Simethicone (Maalox) 30 ml PO Q4H PRN PRN Reason: GI Upset Stop: 01/16/19 06:24 Bismuth Subsalicylate (Kaopectate) 15 ml PO PRN PRN PRN Reason: Loose Stool Stop: 01/16/19 06:24 Hydroxyzine HCl (Vistaril) 50 mg PO HSZ PRN PRN Reason: Insomnia Stop: 01/16/19 06:24 Hydroxyzine HCl (Vistaril) 25 mg PO Q4H PRN PRN Reason: Anxiety Stop: 01/16/19 06:24 Magnesium Hydroxide (Milk Of Magnesia) 30 ml PO DAILY PRN PRN Reason: Constipation Stop: 01/16/19 06:24 Sodium Chloride ([place] Nasal) 1 - 2 sprays NA PRN PRN PRN Reason: Nasal Dryness/Congestion Stop: 01/16/19 06:24
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
== END 2018-12-17 11:40 | disposition left against medical advice (07) | DRG 883 ==
LOC: ED 21:51 → 3S 12-17 05:17